=== PATIENT | female | born 1950 | race African-American/Black ===

== ENCOUNTER 2016-09-30 13:49 | Emergency (ER) | payer MEDICAID, MEDICARE ==
--- NOTE | 2016-09-30 14:28 | ER Document Report ---
ED Medical Screen (RME) - General Chief Complaint: Flank Pain Stated Complaint: FLANK PAIN Time Seen by Provider: 09/30/16 14:20 Notes: This 66-year-old female patient moved back to this area a few days ago. She had been living in [place] for the past year. She reports sudden onset about 4 hours ago while sitting on the bed of severe left flank pain. She also complains of pain in her joints in her arms and bursitis which is a chronic problem. Brief exam shows palpation tenderness to the left lumbar muscles, flank muscles , and lateral ribs abdomen and over the iliac crest. She did not take her blood pressure medication this morning. I have greeted and performed a rapid initial assessment of this patient. A comprehensive ED assessment and evaluation of the patient, analysis of test results and completion of the medical decision making process will be conducted by additional ED providers. TRAVEL OUTSIDE OF THE [place] IN LAST 30 DAYS: No - Related Data Allergies/Adverse Reactions: hydrocodone [Hydrocodone] Allergy (Severe, Verified 09/30/16 14:21) Hives naproxen sodium [From Aleve] Allergy (Severe, Verified 09/30/16 14:21) tremors pregabalin [From Lyrica] Allergy (Severe, Verified 09/30/16 14:21) Hallucinations strawberry [[place]] Allergy (Severe, Verified 09/30/16 14:21) Hives Past Medical History - Social History Chew tobacco use (# tins/day): No Frequency of alcohol use: None Drug Abuse: None - Past Medical History Cardiac Medical History: Reports: Hx Hypertension Denies: Hx Coronary Artery Disease, Hx Heart Attack Pulmonary Medical History: Reports: Hx Asthma - as child-not currently Denies: Hx Bronchitis, Hx COPD, Hx Pneumonia Neurological Medical History: Denies: Hx Cerebrovascular Accident, Hx Seizures Renal/ Medical History: Denies: Hx Peritoneal Dialysis GI Medical History: Reports: Hx Gastroesophageal Reflux Disease, Hx Hiatal Hernia Musculoskeltal Medical History: Reports Hx Arthritis - fibromyalgia, Reports Hx Fibromyalgia Past Surgical History: Reports: Hx Hysterectomy, Hx Tubal Ligation - Immunizations Hx Diphtheria, Pertussis, Tetanus Vaccination: Yes Physical Exam - Vital signs Vitals: Temp Pulse Resp BP Pulse Ox 98.8 F 75 18 177/102 H 97 09/30/16 14:02 09/30/16 14:02 09/30/16 14:02 09/30/16 14:02 09/30/16 14:02 Course - Vital Signs Vital signs: Temp Pulse Resp BP Pulse Ox 98.8 F 75 18 177/102 H 97 09/30/16 14:02 09/30/16 14:02 09/30/16 14:02 09/30/16 14:02 09/30/16 14:02
[2016-09-30 16:17] LABS: ABSOLUTE BASOPHILS # (AUTO) 0.1 10^3/uL (0.0-0.2); ABSOLUTE EOSINOPHILS # (AUTO) 0.2 10^3/uL (0.0-0.6); ABSOLUTE LYMPHOCYTES (AUTO) 2.6 10^3/uL (0.5-4.7); ABSOLUTE MONOCYTES (AUTO) 0.3 10^3/uL (0.1-1.4); EOSINOPHILS % (AUTO) 2.7 % (0-6); HEMOGLOBIN 14.2 g/dL (12.0-15.5); HGB HCT DIFFERENCE -0.4; LYMPHOCYTES % (AUTO) 42.2 % (13-45); MEAN CORPUSCULAR HEMOGLOBIN 29.7 pg (27.0-33.4); MEAN CORPUSCULAR VOLUME 90 fl (80-97); MONOCYTES % (AUTO) 5.6 % (3-13); RED BLOOD COUNT 4.79 10^6/uL (3.72-5.28); RED CELL DISTRIBUTION WIDTH 14.1 % (11.5-14.0); SEGMENTED NEUTROPHILS % (AUTO) 48.5 % (42-78); WHITE BLOOD COUNT 6.2 10^3/uL (4.0-10.5)
[2016-09-30 16:26] LABS: APPEARANCE,URINE CLEAR; BILIRUBIN,URINE NEGATIVE (NEGATIVE); GLUCOSE, URINE NEGATIVE (NEGATIVE); KETONES,URINE NEGATIVE (NEGATIVE); LEUKOCYTE ESTERASE,URINE NEGATIVE (NEGATIVE); NITRITE,URINE NEGATIVE (NEGATIVE); PROTEIN,URINE NEGATIVE (NEGATIVE); URINE SPECIFIC GRAVITY 1.009; UROBILINOGEN,URINE NEGATIVE mg/dL (<2.0)
[2016-09-30 16:39] LABS: ALANINE AMINOTRANSFERASE 31 U/L (9-52); ALBUMIN 4.3 g/dL (3.5-5.0); ALKALINE PHOSPHATASE 167 U/L (38-126); ANION GAP 13 (5-19); ASPARTATE AMINO TRANSFERASE 18 U/L (14-36); BILIRUBIN,DIRECT 0.4 mg/dL (0.0-0.4); BILIRUBIN,TOTAL 0.5 mg/dL (0.2-1.3); BLOOD UREA NITROGEN 16 mg/dL (7-20); CARBON DIOXIDE 23 mmol/L (22-30); CHLORIDE 102 mmol/L (98-107); CREATINE KINASE 65 U/L (30-135); CREATININE RESULT 0.64 mg/dL (0.52-1.25); GLUCOSE 102 mg/dL (75-110); POTASSIUM 4.3 mmol/L (3.6-5.0)
[2016-09-30] MEDS ORDERED: KETOROLAC TROMETHAMINE 60 MG/2 ML SDV IM ONE (16:55)
--- NOTE | 2016-09-30 16:58 | ER Document Report ---
ED General - General Chief Complaint: Flank Pain Stated Complaint: FLANK PAIN Time Seen by Provider: 09/30/16 14:20 Notes: 66-year-old female with history of a and chronic pain recently moved back to the area from [place] who presents with left back pain worse with movement. Constant. Of note, she seems to be mildly intoxicated on my interview. She denies urinary symptoms or nausea or vomiting. Previously on Lyrica. TRAVEL OUTSIDE OF THE [place] IN LAST 30 DAYS: No - Related Data Allergies/Adverse Reactions: hydrocodone [Hydrocodone] Allergy (Severe, Verified 09/30/16 14:21) Hives naproxen sodium [From Aleve] Allergy (Severe, Verified 09/30/16 14:21) tremors pregabalin [From Lyrica] Allergy (Severe, Verified 09/30/16 14:21) Hallucinations strawberry [[place]] Allergy (Severe, Verified 09/30/16 14:21) Hives Past Medical History - General Information source: Patient - Social History Smoking Status: Never Smoker Chew tobacco use (# tins/day): No Frequency of alcohol use: None Drug Abuse: None Family History: Reviewed & Not Pertinent - Past Medical History Cardiac Medical History: Reports: Hx Hypertension Denies: Hx Coronary Artery Disease, Hx Heart Attack Pulmonary Medical History: Reports: Hx Asthma - as child-not currently Denies: Hx Bronchitis, Hx COPD, Hx Pneumonia Neurological Medical History: Denies: Hx Cerebrovascular Accident, Hx Seizures Renal/ Medical History: Denies: Hx Peritoneal Dialysis GI Medical History: Reports: Hx Gastroesophageal Reflux Disease, Hx Hiatal Hernia Musculoskeltal Medical History: Reports Hx Arthritis - fibromyalgia, Reports Hx Fibromyalgia Past Surgical History: Reports: Hx Hysterectomy, Hx Tubal Ligation - Immunizations Hx Diphtheria, Pertussis, Tetanus Vaccination: Yes Hx Pneumococcal Vaccination: 11/26/12 Review of Systems - Review of Systems Notes: REVIEW OF SYSTEMS GEN: Denies fever, chills, weight loss ENT: Denies sore throat, nasal discharge, ear pain EYES: Denies blurry vision, eye pain, discharge CV: Denies chest pain, palpitations, edema RESP: Denies cough, shortness of breath, wheezing GI: Denies abdominal pain, nausea, vomiting, diarrhea MSK: Left-sided back pain, chronic joint pain SKIN: Denies rash, skin lesions LYMPH: Denies swollen glands/lymph nodes NEURO: Denies headache, focal weakness or numbness, dizziness PSYCH: Denies depression, suicidal or homicidal ideation PHYSICAL EXAMINATION General: No acute distress, well-nourished Head: Atraumatic, normocephalic ENT: Mouth normal, oropharynx moist, no exudates or tonsillar enlargement Eyes: Conjunctiva normal, pupils equal, lids normal Neck: No JVD, supple, no guarding CVS: Normal rate, regular rhythm, no murmurs Resp: No resp distress, equal and normal breath sounds bilaterally GI: Nondistended, soft, no tenderness to palpation, no rebound or guarding Ext: No deformities, no edema, normal range of motion in upper and lower ext Back: No CVA or midline TTP. Patient is holding her left paraspinous area which is mildly tender without spasm. Skin: No rash, warm Lymphatic: No lymphadeopathy noted Neuro: Awake, alert. Face symmetric. GCS 15. Physical Exam - Vital signs Vitals: Temp Pulse Resp BP Pulse Ox 98.8 F 75 18 177/102 H 97 09/30/16 14:02 09/30/16 14:02 09/30/16 14:02 09/30/16 14:02 09/30/16 14:02 Course - Re-evaluation Re-evalutation: 09/30/16 16:57 66-year-old lady with history of chronic pain presents with acute back pain. She has multiple allergies, moved out of the area I cannot check her records for narcotics and I suspect she is mildly intoxicated. Likely she had labs and a urinalysis ordered from triage and they are all normal. She is no midline tenderness to suggest severe because of bony back pain she has no neurologic symptoms to suggest cauda equina. I let her know that in order to get controlled substances she will need to establish care with the primary doctor. She will be given Toradol in the emergency department and prescribed naproxen. I have discussed with the patient there likely diagnosis, aftercare plan, follow -up plans and my usual and customary return precautions. They verbalized understanding of this. 09/30/16 16:57 - Vital Signs Vital signs: Temp Pulse Resp BP Pulse Ox 98.8 F 75 18 177/102 H 97 09/30/16 14:02 09/30/16 14:02 09/30/16 14:02 09/30/16 14:02 09/30/16 14:02 - Laboratory Result Diagrams: 09/30/16 15:55 09/30/16 15:55 Laboratory results interpreted by me: 09/30/16 09/30/16 15:55 15:55 RDW 14.1 H Alkaline Phosphatase 167 H Discharge - Discharge Clinical Impression: Acute back pain Qualifiers: Back pain location: low back pain Back pain laterality: right Sciatica presence : without sciatica Qualified Code(s): M54.5 - Low back pain Condition: Good Disposition: HOME, SELF-CARE Instructions: Low Back Pain ([facility]) Additional Instructions: Please establish care with a primary care doctor in order to manage her fibromyalgia, joint pain in this back pain if it is not improved.
[2016-09-30 17:22] VITALS: BP 151/92
== END 2016-09-30 17:22 | disposition home or self-care (01) ==
LOC: ER 13:49
DX: M54.5 Low back pain (principal); R10.9 Unspecified abdominal pain; M54.9 Dorsalgia, unspecified; G89.29 Other chronic pain
CPT/HCPCS: 99283; 96372; 36415; 82550; 85025; 80053; 81001; J1885

== ENCOUNTER → 2016-10-17 | Outpatient (CLI) | payer MEDICARE, MEDICAID ==
--- NOTE | 2016-10-17 11:27 | RADIOLOGY REPORT (SQ) ---
EXAM DESCRIPTION: L SPINE WHOLE COMPLETED DATE/TIME: 10/17/2016 11:06 am REASON FOR STUDY: LOW BACK PAIN (M54.5) M54.5 LOW BACK PAIN COMPARISON: None. NUMBER OF VIEWS: Five views including obliques. TECHNIQUE: AP, lateral, oblique, and sacral radiographic images acquired of the lumbar spine. LIMITATIONS: None. FINDINGS: MINERALIZATION: Osteopenia. SEGMENTATION: Normal. No transitional anatomy. ALIGNMENT: Normal. VERTEBRAE: Maintained height. No fracture or worrisome bone lesion. DISCS: Preserved height. No significant osteophytes or end plate irregularity. POSTERIOR ELEMENTS: Hypertrophic facet changes are present throughout the lumbar spine. HARDWARE: None in the spine. PARASPINAL SOFT TISSUES: Normal. PELVIS: Intact as visualized. No fractures or worrisome bone lesions. SI joints intact. OTHER: No other significant finding. IMPRESSION: Multilevel facet arthropathy. TECHNICAL DOCUMENTATION: JOB ID: [id number] [email or web address]- All Rights Reserved
== END ==
LOC: RAD 10:13
PROVIDERS: ATTEND Family Medicine
DX: M54.5 Low back pain (principal)
CPT/HCPCS: 72110

== ENCOUNTER 2016-11-15 18:20 | Emergency (ER) | payer MEDICARE, MEDICAID ==
[2016-11-15] MEDS ORDERED: ASPIRIN 81 MG TABLET, CHEWABLE PO ONE (20:39)
--- NOTE | 2016-11-15 21:48 | RADIOLOGY REPORT (SQ) ---
EXAM DESCRIPTION: CHEST SINGLE VIEW COMPLETED DATE/TIME: 11/15/2016 9:32 pm REASON FOR STUDY: cp COMPARISON: 08/31/2015 EXAM PARAMETERS: NUMBER OF VIEWS: One view. TECHNIQUE: Single frontal radiographic view of the chest acquired. RADIATION DOSE: NA LIMITATIONS: None. FINDINGS: LUNGS AND PLEURA: No opacities, masses or pneumothorax. No pleural effusion. MEDIASTINUM AND HILAR STRUCTURES: No masses. Contour normal. HEART AND VASCULAR STRUCTURES: Heart normal in size. Normal vasculature. BONES: No acute findings. HARDWARE: None in the chest. OTHER: No other significant finding. IMPRESSION: NO ACUTE RADIOGRAPHIC FINDING IN THE CHEST. TECHNICAL DOCUMENTATION: JOB ID: [id number]
[2016-11-15] MEDS ORDERED: LORAZEPAM 1 MG TABLET PO ONE (21:57)
[2016-11-15] MEDS ORDERED: FAMOTIDINE 20 MG TABLET PO ONE (22:00)
--- NOTE | 2016-11-15 22:02 | ER Document Report ---
ED General - General Chief Complaint: Chest Pain Stated Complaint: CHEST PAIN Time Seen by Provider: 11/15/16 21:45 Notes: Patient is a 66-year-old female with a past medical history of hypertension and fibromyalgia who presents complaining of an episode of left-sided chest discomfort as well as epigastric abdominal discomfort starting yesterday and has been continuous since that time. Describes it as a dull, aching pressure over the left side of the chest and epigastrium but is not present at this time. States that she has not tried anything to improve her symptoms at home and has not noted anything worsens her symptoms. She denies any history of coronary artery disease or prior myocardial infarction. She denies any associated pleuritic pain, shortness of breath, diaphoresis or vomiting. She does note that she was nauseated however with the pain. She has not seen a primary care doctor regarding today's concerns. She has had similar symptoms in the past. TRAVEL OUTSIDE OF THE [place] IN LAST 30 DAYS: No - Related Data Allergies/Adverse Reactions: hydrocodone [Hydrocodone] Allergy (Severe, Verified 11/15/16 18:41) Hives naproxen sodium [From Aleve] Allergy (Severe, Verified 11/15/16 18:41) tremors pregabalin [From Lyrica] Allergy (Severe, Verified 11/15/16 18:41) Hallucinations strawberry [[place]] Allergy (Severe, Verified 11/15/16 18:41) Hives Past Medical History - General Information source: Patient - Social History Smoking Status: Never Smoker Frequency of alcohol use: None Drug Abuse: None Lives with: Alone Family History: Reviewed & Not Pertinent - Past Medical History Cardiac Medical History: Reports: Hx Hypertension Denies: Hx Coronary Artery Disease, Hx Heart Attack Pulmonary Medical History: Reports: Hx Asthma - as child-not currently Denies: Hx Bronchitis, Hx COPD, Hx Pneumonia Neurological Medical History: Denies: Hx Cerebrovascular Accident, Hx Seizures Renal/ Medical History: Denies: Hx Peritoneal Dialysis GI Medical History: Reports: Hx Gastroesophageal Reflux Disease, Hx Hiatal Hernia Musculoskeltal Medical History: Reports Hx Arthritis - fibromyalgia, Reports Hx Fibromyalgia Past Surgical History: Reports: Hx Hysterectomy, Hx Tubal Ligation - Immunizations Hx Diphtheria, Pertussis, Tetanus Vaccination: Yes Hx Pneumococcal Vaccination: 11/26/12 Review of Systems - Review of Systems Notes: Constitutional: Negative for fever. HENT: Negative for sore throat. Eyes: Negative for visual changes. Cardiovascular: Positive for chest pain. Respiratory: Negative for shortness of breath. Gastrointestinal: Negative for abdominal pain, vomiting or diarrhea. Genitourinary: Negative for dysuria. Musculoskeletal: Negative for back pain. Skin: Negative for rash. Neurological: Negative for headaches, weakness or numbness. 10 point ROS negative except as marked above and in HPI. Physical Exam - Vital signs Vitals: Temp Pulse Resp BP Pulse Ox 99.1 F 73 20 195/97 H 98 11/15/16 18:37 11/15/16 18:37 11/15/16 18:37 11/15/16 18:37 11/15/16 18:37 Interpretation: Hypertensive Notes: PHYSICAL EXAMINATION: GENERAL: Well-appearing, well-nourished and in no acute distress. HEAD: Atraumatic, normocephalic. EYES: Pupils equal round and reactive to light, extraocular movements intact, sclera anicteric, conjunctiva are normal. ENT: nares patent, oropharynx clear without exudates. Moist mucous membranes. NECK: Normal range of motion, supple without lymphadenopathy LUNGS: Breath sounds clear to auscultation bilaterally and equal. No wheezes rales or rhonchi. HEART: Regular rate and rhythm without murmurs ABDOMEN: Soft, nontender, normoactive bowel sounds. No guarding, no rebound. No masses appreciated. EXTREMITIES: Normal range of motion, no pitting or edema. No cyanosis. NEUROLOGICAL: No focal neurological deficits. Moves all extremities spontaneously and on command. PSYCH: Normal mood, normal affect. SKIN: Warm, Dry, normal turgor, no rashes or lesions noted. Course - Re-evaluation Re-evalutation: 11/15/16 22:02 Presentation of chest pain in an otherwise well appearing patient. Low clinical suspicion for ACS given clinical history, exam, EKG without ST elevations or depressions, and negative initial troponin. EKG does show T-wave inversions in the lateral leads and review of prior EKGs shows that this is unchanged. PE also seems unlikely given clinical history, absence of tachycardia or dyspnea. Wells score is 0. CXR without evidence of pneumothorax or pneumonia. No widened mediastinum. Aortic dissection also seems unlikely given history, symmetric pulses, CXR, and vitals. 11/16/16 02:12 Repeat troponin remains normal. Patient continues to be without any symptoms or concerns at this time. She is requesting to go home. I do believe this is reasonable as she does have close outpatient follow-up. At this time will discharge with return precautions and follow-up recommendations. Verbal discharge instructions given a the bedside and opportunity for questions given. Medication warnings reviewed. Patient is in agreement with this plan and has verbalized understanding of return precautions and the need for primary care follow-up in the next 24-72 hours. - Vital Signs Vital signs: Temp Pulse Resp BP Pulse Ox 99.1 F 73 14 195/97 H 99 11/15/16 18:37 11/15/16 18:37 11/15/16 23:00 11/15/16 18:37 11/15/16 23:00 - Laboratory Result Diagrams: 11/15/16 22:42 11/15/16 22:42 Laboratory results interpreted by me: 11/15/16 11/15/16 22:42 22:42 Seg Neutrophils % 39.5 L Lymphocytes % 50.0 H Alkaline Phosphatase 155 H - Diagnostic Test Radiology reviewed: Image reviewed, Reports reviewed Radiology results interpreted by me: 11/15/16 22:01 Chest x-ray: No acute infiltrate or pneumothorax - EKG Interpretation by Me Additional EKG results interpreted by me: 11/15/16 22:06 Normal sinus rhythm. Rate 73. No ST elevations or depressions. T-wave inversions in lateral leads unchanged from prior EKG. QTC is 437. Discharge - Discharge Clinical Impression: Essential hypertension Chest pain Qualifiers: Chest pain type: unspecified Qualified Code(s): R07.9 - Chest pain, unspecified Condition: Good Disposition: HOME, SELF-CARE Additional Instructions: You were seen today for chest pain. The exact cause of your pain is unclear. However, based on your cardiac enzyme testing, chest x-ray, and EKG it does not appear that it is from an immediately life-threatening cause at this time. Although your testing here is normal is critical that you follow-up with your primary care physician for continued evaluation of this chest pain and possible stress testing. I recommended you see your physician within the next 24-48 hours to be evaluated for consideration of a stress test. Please return to emergency department immediately if you have worsening of your chest pain, shortness of breath, vomiting, become unable to exert yourself due to pain or difficulty breathing, you pass out, or have any pain that radiates into your arms, jaw, or back. Please also return if you have any additional symptoms that are concerning to you. Referrals: ALINA PHILLIPS MD [Primary Care Provider] - Follow up as needed
[2016-11-15 22:58] LABS: ABSOLUTE BASOPHILS # (AUTO) 0.1 10^3/uL (0.0-0.2); ABSOLUTE EOSINOPHILS # (AUTO) 0.2 10^3/uL (0.0-0.6); ABSOLUTE LYMPHOCYTES (AUTO) 3.2 10^3/uL (0.5-4.7); ABSOLUTE MONOCYTES (AUTO) 0.4 10^3/uL (0.1-1.4); ABSOLUTE NEUT (AUTO) 2.6 10^3/uL (1.7-8.2); EOSINOPHILS % (AUTO) 2.3 % (0-6); HEMATOCRIT 41.1 % (36.0-47.0); HEMOGLOBIN 13.9 g/dL (12.0-15.5); HGB HCT DIFFERENCE 0.6; MEAN CORPUSCULAR HEMOGLOBIN 30.3 pg (27.0-33.4); MEAN CORPUSCULAR HGB CONC 33.9 g/dL (32.0-36.0); MEAN CORPUSCULAR VOLUME 89 fl (80-97); MONOCYTES % (AUTO) 6.2 % (3-13); RED CELL DISTRIBUTION WIDTH 13.9 % (11.5-14.0); SEGMENTED NEUTROPHILS % (AUTO) 39.5 % (42-78); WHITE BLOOD COUNT 6.5 10^3/uL (4.0-10.5)
[2016-11-15 23:27] LABS: ALANINE AMINOTRANSFERASE 25 U/L (9-52); ALBUMIN 4.1 g/dL (3.5-5.0); ALKALINE PHOSPHATASE 155 U/L (38-126); ANION GAP 10 (5-19); ASPARTATE AMINO TRANSFERASE 28 U/L (14-36); BILIRUBIN,DIRECT 0.3 mg/dL (0.0-0.4); BILIRUBIN,TOTAL 0.3 mg/dL (0.2-1.3); BLOOD UREA NITROGEN 12 mg/dL (7-20); CALCIUM 9.5 mg/dL (8.4-10.2); CARBON DIOXIDE 23 mmol/L (22-30); CHLORIDE 105 mmol/L (98-107); CREATININE RESULT 0.54 mg/dL (0.52-1.25); GLUCOSE 107 mg/dL (75-110); SODIUM 138.3 mmol/L (137-145); TOTAL PROTEIN 7.7 g/dL (6.3-8.2)
[2016-11-16] MEDS ORDERED: LIDOCAINE 2% JELLY 5 ML TUBE TOP ONE (00:06)
--- NOTE | 2016-11-16 00:16 | EKG REPORT ---
SEVERITY:- ABNORMAL ECG - SINUS RHYTHM ABNORMAL T, CONSIDER ISCHEMIA, LATERAL LEADS : Confirmed by: Michael Bedolla 16-Nov-2016 00:15:58
[2016-11-16 03:16] VITALS: BP 162/94
== END 2016-11-16 03:13 | disposition home or self-care (01) ==
LOC: ER 18:20
DX: R07.89 Other chest pain (principal); I10 Essential (primary) hypertension; R11.0 Nausea; Z88.5 Allergy status to narcotic agent; Z91.018 Allergy to other foods; Z88.8 Allergy status to other drugs, medicaments and biological substances
CPT/HCPCS: 93005; 99285; 36415; 85025; 80053; 84484; 71010; 93010; A9270 ×3

== ENCOUNTER 2016-11-28 17:57 | Emergency (ER) | payer MEDICARE, MEDICAID ==
[2016-11-28] MEDS ORDERED: OXYCODONE-ACETAMINOPHEN 5-325 MG TABLET PO ONE (20:16)
--- NOTE | 2016-11-28 20:28 | ER Document Report ---
ED Extremity Problem, Lower - General Chief Complaint: Toe Injury Stated Complaint: TOE INJURY Time Seen by Provider: 11/28/16 19:40 Mode of Arrival: Ambulatory Information source: Patient Notes: 66-year-old female presents to ED for complaint of pain to her fourth toe on her right foot. She states she kicked a table about 130 this afternoon while going to answer the phone. Her sister was at [place] so she needed to wait for her to come home before she could come to the doctor. TRAVEL OUTSIDE OF THE [place] IN LAST 30 DAYS: No - HPI Patient complains to provider of: Injury, Pain, Swelling Location: 4th Toe Occurred: This afternoon Where: Home, Indoors Onset/Duration: Sudden, Persistent Quality of pain: Sharp, Throbbing Severity: Moderate Pain Level: 4 Context: Barefoot Recent injury: Yes Associated symptoms: Painful ambulation Exacerbated by: Hanging down, Movement, Walking Relieved by: Elevation, Ice, Rest - Related Data Allergies/Adverse Reactions: hydrocodone [Hydrocodone] Allergy (Severe, Verified 11/15/16 18:41) Hives naproxen sodium [From Aleve] Allergy (Severe, Verified 11/15/16 18:41) tremors pregabalin [From Lyrica] Allergy (Severe, Verified 11/15/16 18:41) Hallucinations strawberry [[place]] Allergy (Severe, Verified 11/15/16 18:41) Hives Past Medical History - Social History Smoking Status: Never Smoker Cigarette use (# per day): No Chew tobacco use (# tins/day): No Smoking Education Provided: No Frequency of alcohol use: None Drug Abuse: None Lives with: Family Family History: Reviewed & Not Pertinent Patient has suicidal ideation: No - Past Medical History Cardiac Medical History: Reports: Hx Hypertension, Other - irregular heartbeat Pulmonary Medical History: Reports: Hx Asthma - as child-not currently, Hx Bronchitis, Hx Pneumonia EENT Medical History: Reports: None Neurological Medical History: Reports: Hx Migraine Endocrine Medical History: Reports: Hx Diabetes Mellitus Type 2 - diet control Renal/ Medical History: Reports: None Malignancy Medical History: Reports: None GI Medical History: Reports: Hx Gastroesophageal Reflux Disease, Hx Hiatal Hernia, Hx Colonoscopy, Hx Endoscopy Musculoskeltal Medical History: Reports Hx Arthritis - fibromyalgia, Reports Hx Fibromyalgia Skin Medical History: Reports None Psychiatric Medical History: Reports: None Traumatic Medical History: Reports: Hx Fractures - Arm leg ankle Infectious Medical History: Reports: None Past Surgical History: Reports: Hx Hysterectomy, Hx Oral Surgery - Dental surgery, Hx Tubal Ligation - Immunizations Hx Diphtheria, Pertussis, Tetanus Vaccination: Yes Hx Pneumococcal Vaccination: 11/26/12 Review of Systems - Review of Systems Constitutional: No symptoms reported EENT: No symptoms reported Cardiovascular: No symptoms reported Respiratory: No symptoms reported Gastrointestinal: No symptoms reported Genitourinary: No symptoms reported Female Genitourinary: No symptoms reported Musculoskeletal: Other - painful 4th toe with bruising and swelling Skin: No symptoms reported Hematologic/Lymphatic: No symptoms reported Neurological/Psychological: No symptoms reported -: Yes All other systems reviewed and negative Physical Exam - Vital signs Vitals: Pulse Resp BP Pulse Ox 93 18 157/103 H 94 11/28/16 18:15 11/28/16 18:15 11/28/16 18:15 11/28/16 18:15 Interpretation: Normal - General General appearance: Appears well, Alert - HEENT Head: Normocephalic, Atraumatic Eyes: Normal Pupils: PERRL - Respiratory Respiratory status: No respiratory distress Chest status: Nontender Breath sounds: Normal Chest palpation: Normal - Cardiovascular Rhythm: Regular Heart sounds: Normal auscultation Murmur: No - Abdominal Inspection: Normal Distension: No distension Bowel sounds: Normal Tenderness: Nontender Organomegaly: No organomegaly - Back Back: Normal, Nontender - Extremities General upper extremity: Normal inspection, Nontender, Normal color, Normal ROM , Normal temperature General lower extremity: Normal ROM, Normal temperature, Normal weight bearing. No: Nicole's sign Foot: Tender, Ecchymosis, Edema, No evidence of FB, Unable to bear weight. No: Abrasion, Deformity, Instability, Laceration, Metatarsal compress. pain, Navicular tenderness, Puncture wound, Tender 5th metatarsal - Neurological Neuro grossly intact: Yes Cognition: Normal Orientation: AAOx4 [place] Coma Scale Eye Opening: Spontaneous [place] Coma Scale Verbal: Oriented Henry Coma Scale Motor: Obeys Commands [place] Coma Scale Total: 15 Speech: Normal Motor strength normal: LUE, RUE, LLE, RLE Sensory: Normal - Psychological Associated symptoms: Normal affect, Normal mood - Skin Skin Temperature: Warm Skin Moisture: Dry Skin Color: Normal, Ecchymosis - right foot Course - Re-evaluation Re-evalutation: 11/28/16 21:01 X-ray showed to patient and written report given the patient and CD given the patient to take to orthopedics as she states she is going to [facility]. Norbert tape applied to the third and fourth toes within the patient was placed in a postop shoe and instructed on use of crutches. Patient instructed to elevate and ice the toe. Patient instructed to follow-up with her primary doctor tomorrow for her elevated blood pressure. Patient is discharged home with prescription for Percocet. - Vital Signs Vital signs: Temp Pulse Resp BP Pulse Ox 98.6 F 86 20 192/110 H 97 11/28/16 20:56 11/28/16 20:56 11/28/16 20:56 11/28/16 20:56 11/28/16 20:56 - Diagnostic Test Radiology reviewed: Image reviewed, Reports reviewed Procedures - Immobilization Right Toe 4th digit Time completed: 21:01 Pre-Proc Neuro Vasc Exam: Normal Immobilizer type: Crutches, Post-op shoe, Other - norbert tape 4th toe Performed by: Provider assisted, PCT Post-Proc Neuro Vasc Exam: Normal Alignment checked and good: Yes Discharge - Discharge Clinical Impression: Closed fracture of fourth toe of right foot Qualifiers: Encounter type: initial encounter Qualified Code(s): S92.501A - Displaced unspecified fracture of right lesser toe(s), initial encounter for closed fracture Condition: Stable Disposition: HOME, SELF-CARE Additional Instructions: Fractured Toe You have fractured your toe. Although this fracture doesn't need a cast or splint, emergency evaluation was needed to assess the straightness of the bones and joints. Reduction ("setting") is necessary for toe fractures which are crooked or twisted. A toe fracture will heal in about three weeks. Usually, the fractured toe is taped to the next toe. The second toe acts as a moving splint to protect the broken one. Ice and elevation help during the first 48 hours. You may need crutches at first if walking is painful. When you begin walking, be careful NOT to do things that hurt. If weight bearing is not comfortable within a few days, you may require a special shoe, walking boot, or cast. Call the doctor or return at once if severe swelling, severe pain, or numbness develop in the toe, or if you suspect you may have re-injured it. Norbert Taping Your toes have been taped together -- called "norbert taping." The good toe can act as a moving splint to protect the injured toe. You will probably need to keep the tape in place (replacing it when needed) for about three weeks. A firm shoe over the injured toes is usually a good idea. As a general rule, you shouldn't do anything which causes pain to your taped toes. Taping isn't absolute protection, so match your activity to your degree of healing. If you ever suspect that you have re-injured the toe, return for re-examination. Keep the tape dry. Constant wetness harms the skin. Some cotton between the toes may help if perspiration is a problem. Replace the tape as needed when it becomes loose, weak, or dirty. Replace the tape daily if you are sweating. If the toes swell, discolor, or become numb, loosen the tape. Return here if there are problems. Post-Op Shoe You are to use a "post-op shoe," sometimes also called a "bunnion shoe." This shoe helps protect minor fractures, sprains, and other injuries of the toes or foot. You may remove the shoe for bathing. Walk carefully. If you're feeling pain, put less weight on the foot, take smaller steps, or use a cane. If you have a new injury, you may need to use crutches for the first couple of days. If pain still prevents walking after a few days, contact the doctor. If there's unexpected pain in your foot, if blisters or sore spots develop , or if the shoe is physically coming apart, return at once. Remember that you' re welcome to come in at any time to have the fit of the shoe checked and adjusted. USE OF CRUTCHES: The doctor has recommended that you not bear weight at this time. You will need to use crutches. Adjust the crutches so the tops come to about two inches under the armpit while you are standing upright. Use your hands -- not your armpits -- to support your weight. To get into a chair, support yourself with one crutch on the injured side. Hold the chair with the other hand, then lower yourself while putting all your weight on the good leg. Going up stairs is `good leg up, step up, then bring up crutches and bad leg.' Down stairs is `bad leg and crutches down, then bring good leg down.' If you develop numbness or swelling in an arm or hand, you are using the crutches incorrectly. Return if you are having any problems with the crutches. ICE & ELEVATION: Apply ice packs frequently against the painful area. Many different schedules are recommended, such as "20 minutes on, 20 minutes off" or "one hour ice, two hours rest." If you need to work, you may need to go longer between ice treatments. You should plan to have the area ice packed AT LEAST one- fourth of the time. The ice should be applied over the wrap, tape, or splint, or over a layer of cloth -- not directly against the skin. Some ice bags have a built-in cloth and can be put directly on the skin. Your injured part should be elevated as much as possible over the next 48 hours. Try to keep the injury above the level of the heart. Avoid use of the injured area. Elevation and rest will decrease the swelling. USE OF [id number] IBUPROFEN: Ibuprofen (Advil, Nuprin, Medipren, Motrin IB) is a medication for fever and pain control. In addition, it has anti- inflammatory effects which may be beneficial, especially in the treatment of injuries. It's best to take ibuprofen with food. Persons with ulcer disease or allergy to aspirin should notify their physician of this before taking ibuprofen. Ibuprofen can be given every four to six hours, for a total of four doses daily. Age Pain or fever dose Antiinflammatory dose 6-8 yr 200 mg (1 tab) 200 mg (1 tab) 9-11 yr 200 mg (1 tab) 200-400 mg (1-2 tab) 11-14 yr 200-400 mg (1-2 tab) 400 mg (2 tab) 15-adult 400 mg (2 tab) 600 mg (3 tab) ORAL NARCOTIC MEDICATION: You have been given a prescription for pain control. This medication is a narcotic. It's best taken with food, as nausea can result if taken on an empty stomach. Don't operate machinery or drive within six hours of taking this medication. Do not combine this medicine with alcohol, or with any medication which can cause sedation (such as cold tablets or sleeping pills) unless you get permission from the physician. Narcotics tend to cause constipation. If possible, drink plenty of fluids and eat a diet high in fiber and fruits. Please be aware that prescription narcotics also have the potential for abuse. People become addicted to these medications because of the general sense of wellbeing that they induce. This feeling along with a significant reduction in tension, anxiety, and aggression provides a stimulating seductive quality to these drugs. Once your pain is under control, we encourage you to discard your unused narcotics. FOLLOW-UP CARE: If you have been referred to a physician for follow-up care, call the physician s office for an appointment as you were instructed or within the next two days. If you experience worsening or a significant change in your symptoms, notify the physician immediately or return to the Emergency Department at any time for re-evaluation. Stated you will go to [facility] tomorrow. I have made a CD of the x-ray for her to take to or to [place]. Prescriptions: Oxycodone HCl/Acetaminophen [Percocet 5-325 mg Tablet] 1 tab PO Q6HP PRN #10 tablet PRN Reason: Forms: Elevated Blood Pressure Referrals: SHAYE GUPTA MD [Primary Care Provider] - Follow up as needed
--- NOTE | 2016-11-28 20:40 | RADIOLOGY REPORT (SQ) ---
EXAM DESCRIPTION: FOOT RIGHT COMPLETE COMPLETED DATE/TIME: 11/28/2016 8:07 pm REASON FOR STUDY: pain 4th toe COMPARISON: None. NUMBER OF VIEWS: Three views. TECHNIQUE: AP, lateral and oblique radiographic images acquired of the right foot. LIMITATIONS: None. FINDINGS: MINERALIZATION: Osteopenia. BONES: Nondisplaced fracture of the proximal phalanx of the 4th toe. No dislocation. No worrisome b one lesions. JOINTS: No effusions. SOFT TISSUES: Mild soft tissue swelling. No foreign body. OTHER: No other significant finding. IMPRESSION: Nondisplaced fracture of the proximal phalanx of the 4th toe. TECHNICAL DOCUMENTATION: JOB ID: [id number] [employer]- All Rights Reserved
[2016-11-28 20:57] VITALS: BP 192/110
== END 2016-11-28 21:02 | disposition home or self-care (01) ==
LOC: ER 17:57
DX: S92.511A Displaced fracture of proximal phalanx of right lesser toe(s), initial encounter for closed fracture (principal); W22.03XA Walked into furniture, initial encounter; Y93.89 Activity, other specified; Y92.009 Unspecified place in unspecified non-institutional (private) residence as the place of occurrence of the external cause; E11.9 Type 2 diabetes mellitus without complications; I10 Essential (primary) hypertension; Z88.5 Allergy status to narcotic agent; Z88.6 Allergy status to analgesic agent; Z88.8 Allergy status to other drugs, medicaments and biological substances; Z91.018 Allergy to other foods
CPT/HCPCS: 99283; 73630; A9270

== ENCOUNTER 2016-12-27 11:11 | Emergency (ER) | payer MEDICARE, MEDICAID ==
[2016-12-27] MEDS ORDERED: CLONIDINE HCL 0.2 MG TABLET PO ONE (11:30)
--- NOTE | 2016-12-27 11:33 | ER Document Report ---
ED Medical Screen (RME) - General Chief Complaint: Blood Pressure Problem Stated Complaint: BLOOD PRESSURE ISSUES Time Seen by Provider: 12/27/16 11:30 Mode of Arrival: Ambulatory Information source: Patient TRAVEL OUTSIDE OF THE [place] IN LAST 30 DAYS: No - HPI Patient complains to provider of: elevated BP Onset: This morning - pt wsa in PCP office (pain mgt) and was sent here for elevated BP-- states she did not take her BP meds today - Related Data Allergies/Adverse Reactions: hydrocodone [Hydrocodone] Allergy (Severe, Verified 12/27/16 11:16) Hives naproxen sodium [From Aleve] Allergy (Severe, Verified 12/27/16 11:16) tremors pregabalin [From Lyrica] Allergy (Severe, Verified 12/27/16 11:16) Hallucinations strawberry [[place]] Allergy (Severe, Verified 12/27/16 11:16) Hives Home Medications: Current Home Medications Oxycodone HCl/Acetaminophen [Percocet 5-325 mg Tablet] 1 - 2 tab PO DAILY [History] Past Medical History - Past Medical History Cardiac Medical History: Reports: Hx Hypertension Denies: Hx Coronary Artery Disease, Hx Heart Attack Pulmonary Medical History: Reports: Hx Asthma - as child-not currently, Hx Bronchitis, Hx Pneumonia Denies: Hx COPD Neurological Medical History: Reports: Hx Migraine. Denies: Hx Cerebrovascular Accident, Hx Seizures Endocrine Medical History: Reports: Hx Diabetes Mellitus Type 2 - diet control Renal/ Medical History: Denies: Hx Peritoneal Dialysis GI Medical History: Reports: Hx Gastroesophageal Reflux Disease, Hx Hiatal Hernia, Hx Colonoscopy, Hx Endoscopy Musculoskeltal Medical History: Reports Hx Arthritis - fibromyalgia, Reports Hx Fibromyalgia Traumatic Medical History: Reports: Hx Fractures - Arm leg ankle Past Surgical History: Reports: Hx Hysterectomy, Hx Oral Surgery - Dental surgery, Hx Tubal Ligation - Immunizations Hx Diphtheria, Pertussis, Tetanus Vaccination: Yes Physical Exam - Vital signs Vitals: Temp Pulse Resp BP Pulse Ox 97.8 F 79 20 182/120 H 97 12/27/16 11:19 12/27/16 11:19 12/27/16 11:19 12/27/16 11:19 12/27/16 11:19 Course - Vital Signs Vital signs: Temp Pulse Resp BP Pulse Ox 97.8 F 79 20 182/120 H 97 12/27/16 11:19 12/27/16 11:19 12/27/16 11:19 12/27/16 11:19 12/27/16 11:19
[2016-12-27 11:58] LABS: ABSOLUTE BASOPHILS # (AUTO) 0.1 10^3/uL (0.0-0.2); ABSOLUTE EOSINOPHILS # (AUTO) 0.1 10^3/uL (0.0-0.6); ABSOLUTE LYMPHOCYTES (AUTO) 2.2 10^3/uL (0.5-4.7); ABSOLUTE MONOCYTES (AUTO) 0.4 10^3/uL (0.1-1.4); ABSOLUTE NEUT (AUTO) 3.1 10^3/uL (1.7-8.2); BASOPHILS % (AUTO) 1.5 % (0-2); EOSINOPHILS % (AUTO) 1.7 % (0-6); HEMATOCRIT 40.5 % (36.0-47.0); HEMOGLOBIN 13.9 g/dL (12.0-15.5); HGB HCT DIFFERENCE 1.2; LYMPHOCYTES % (AUTO) 37.7 % (13-45); MEAN CORPUSCULAR HEMOGLOBIN 30.3 pg (27.0-33.4); MEAN CORPUSCULAR HGB CONC 34.4 g/dL (32.0-36.0); MEAN CORPUSCULAR VOLUME 88 fl (80-97); MONOCYTES % (AUTO) 6.2 % (3-13); RED BLOOD COUNT 4.59 10^6/uL (3.72-5.28); RED CELL DISTRIBUTION WIDTH 13.9 % (11.5-14.0); SEGMENTED NEUTROPHILS % (AUTO) 52.9 % (42-78); WHITE BLOOD COUNT 5.9 10^3/uL (4.0-10.5)
[2016-12-27 12:28] LABS: ALANINE AMINOTRANSFERASE 41 U/L (9-52); ALBUMIN 4.1 g/dL (3.5-5.0); ALKALINE PHOSPHATASE 142 U/L (38-126); ANION GAP 13 (5-19); ASPARTATE AMINO TRANSFERASE 25 U/L (14-36); BILIRUBIN,DIRECT 0.2 mg/dL (0.0-0.4); BILIRUBIN,TOTAL 0.4 mg/dL (0.2-1.3); BLOOD UREA NITROGEN 13 mg/dL (7-20); CALCIUM 9.7 mg/dL (8.4-10.2); CARBON DIOXIDE 22 mmol/L (22-30); CHLORIDE 106 mmol/L (98-107); CREATININE RESULT 0.63 mg/dL (0.52-1.25); GLUCOSE 137 mg/dL (75-110); SODIUM 140.7 mmol/L (137-145); TOTAL PROTEIN 7.3 g/dL (6.3-8.2)
--- NOTE | 2016-12-27 12:47 | ER Document Report ---
ED General - General Chief Complaint: Blood Pressure Problem Stated Complaint: BLOOD PRESSURE ISSUES Time Seen by Provider: 12/27/16 11:30 Mode of Arrival: Ambulatory TRAVEL OUTSIDE OF THE [place] IN LAST 30 DAYS: No - HPI Patient complains to provider of: Elevated blood pressure Notes: Patient was seen in her dial painter today patient states she did not take her blood pressure medication upon leaving noticed that her blood pressure is elevated and encouraged to come to the ER by the dial painter for further evaluation of her blood pressure. Patient states no symptoms no headaches fevers chills nausea vomiting diarrhea numbness tingling unilateral weakness chest pain. Patient is resting comfortably upon my evaluation patient did receive clonidine prior to my evaluation. - Related Data Allergies/Adverse Reactions: hydrocodone [Hydrocodone] Allergy (Severe, Verified 12/27/16 11:16) Hives naproxen sodium [From Aleve] Allergy (Severe, Verified 12/27/16 11:16) tremors pregabalin [From Lyrica] Allergy (Severe, Verified 12/27/16 11:16) Hallucinations strawberry [[place]] Allergy (Severe, Verified 12/27/16 11:16) Hives Home Medications: Current Home Medications Oxycodone HCl/Acetaminophen [Percocet 5-325 mg Tablet] 1 - 2 tab PO DAILY [History] Past Medical History - General Information source: Patient - Social History Smoking Status: Unknown if Ever Smoked Family History: Reviewed & Not Pertinent Patient has suicidal ideation: No Patient has homicidal ideation: No - Past Medical History Cardiac Medical History: Reports: Hx Hypertension Denies: Hx Coronary Artery Disease, Hx Heart Attack Pulmonary Medical History: Reports: Hx Asthma - as child-not currently, Hx Bronchitis, Hx Pneumonia Denies: Hx COPD Neurological Medical History: Reports: Hx Migraine. Denies: Hx Cerebrovascular Accident, Hx Seizures Endocrine Medical History: Reports: Hx Diabetes Mellitus Type 2 - diet control Renal/ Medical History: Denies: Hx Peritoneal Dialysis GI Medical History: Reports: Hx Gastroesophageal Reflux Disease, Hx Hiatal Hernia, Hx Colonoscopy, Hx Endoscopy Musculoskeltal Medical History: Reports Hx Arthritis - fibromyalgia, Reports Hx Fibromyalgia Traumatic Medical History: Reports: Hx Fractures - Arm leg ankle Past Surgical History: Reports: Hx Hysterectomy, Hx Oral Surgery - Dental surgery, Hx Tubal Ligation - Immunizations Hx Diphtheria, Pertussis, Tetanus Vaccination: Yes Hx Pneumococcal Vaccination: 11/26/12 Review of Systems - Review of Systems Constitutional: Other - Hypertension EENT: No symptoms reported Cardiovascular: No symptoms reported Respiratory: No symptoms reported Gastrointestinal: No symptoms reported Genitourinary: No symptoms reported Female Genitourinary: No symptoms reported Musculoskeletal: No symptoms reported Skin: No symptoms reported Hematologic/Lymphatic: No symptoms reported Neurological/Psychological: No symptoms reported Physical Exam - Vital signs Vitals: Temp Pulse Resp BP Pulse Ox 97.8 F 79 20 182/120 H 97 12/27/16 11:19 12/27/16 11:19 12/27/16 11:19 12/27/16 11:19 12/27/16 11:19 Interpretation: Hypertensive - General General appearance: Appears well, Alert - HEENT Head: Normocephalic, Atraumatic Eyes: Normal Pupils: PERRL - Respiratory Respiratory status: No respiratory distress Chest status: Nontender Breath sounds: Normal Chest palpation: Normal - Cardiovascular Rhythm: Regular Heart sounds: Normal auscultation Murmur: No - Abdominal Inspection: Normal Distension: No distension Bowel sounds: Normal Tenderness: Nontender Organomegaly: No organomegaly - Back Back: Normal, Nontender - Extremities General upper extremity: Normal inspection, Nontender, Normal color, Normal ROM , Normal temperature General lower extremity: Normal inspection, Nontender, Normal color, Normal ROM , Normal temperature, Normal weight bearing. No: Nicole's sign - Neurological Neuro grossly intact: Yes Cognition: Normal Orientation: AAOx4 [place] Coma Scale Eye Opening: Spontaneous [place] Coma Scale Verbal: Oriented [place] Coma Scale Motor: Obeys Commands [place] Coma Scale Total: 15 Speech: Normal Motor strength normal: LUE, RUE, LLE, RLE Sensory: Normal - Psychological Associated symptoms: Normal affect, Normal mood - Skin Skin Temperature: Warm Skin Moisture: Dry Skin Color: Normal Course - Re-evaluation Re-evalutation: 12/27/16 15:55 Patient with a symptom medic hypertension more likely due to not taking her medication this morning. Patient was encouraged to take her medication as prescribed follow-up with her primary care physician for further control of her blood pressure medications. - Vital Signs Vital signs: Temp Pulse Resp BP Pulse Ox 97.8 F 79 17 163/94 H 95 12/27/16 11:19 12/27/16 11:19 12/27/16 13:01 12/27/16 13:01 12/27/16 13:01 - Laboratory Result Diagrams: 12/27/16 11:45 12/27/16 11:45 Laboratory results interpreted by me: 12/27/16 11:45 Glucose 137 H Alkaline Phosphatase 142 H Discharge - Discharge Clinical Impression: Hypertension Qualifiers: Hypertension type: essential hypertension Qualified Code(s): I10 - Essential ( primary) hypertension Condition: Good Disposition: HOME, SELF-CARE Instructions: High Blood Pressure, Requiring Treatment (OM) Additional Instructions: Your blood pressure was elevated today you were given a dose of clonidine this has lowered your blood pressure. To continue to control your blood pressure please take your blood pressure medication as prescribed. Would highly recommend following up with your primary care physician. Your primary care physician will be the doctor that will help to control your blood pressure. Referrals: ALINA PHILLIPS MD [Primary Care Provider] - Follow up as needed
[2016-12-27 13:02] VITALS: BP 163/94
== END 2016-12-27 13:20 | disposition home or self-care (01) ==
LOC: ER 11:11
DX: I10 Essential (primary) hypertension (principal); Z90.710 Acquired absence of both cervix and uterus
CPT/HCPCS: 99283; 36415; 85025; 80053; A9270

== ENCOUNTER 2018-02-06 16:05 | Emergency (ER) | payer MEDICARE, MEDICAID ==
--- NOTE | 2018-02-06 16:35 | ER Document Report ---
ED Medical Screen (RME) - General Chief Complaint: General Weakness Stated Complaint: BACK/LEG PAIN Time Seen by Provider: 02/06/18 16:25 Notes: 67-year-old female patient comes emergency room complaining of blurry vision, generalized weakness, pain in the left back and flank, urinary frequency, falling 6 times in the past week, right leg pain. She had blood pressure medication adjustments recently and her doctor told her her symptoms were due to her blood pressure being too low. At this time she seems a little confused, her speech seems a little slurred and her blood pressure is 150 systolic so a more extensive workup will be started. I have greeted and performed a rapid initial assessment of this patient. A comprehensive ED assessment and evaluation of the patient, analysis of test results and completion of the medical decision making process will be conducted by additional ED providers. TRAVEL OUTSIDE OF THE [place] IN LAST 30 DAYS: No - Related Data Allergies/Adverse Reactions: hydrocodone [Hydrocodone] Allergy (Severe, Verified 12/27/16 11:16) Hives naproxen sodium [From Aleve] Allergy (Severe, Verified 12/27/16 11:16) tremors pregabalin [From Lyrica] Allergy (Severe, Verified 12/27/16 11:16) Hallucinations strawberry [[place]] Allergy (Severe, Verified 12/27/16 11:16) Hives Past Medical History - Past Medical History Cardiac Medical History: Reports: Hx Hypertension Denies: Hx Coronary Artery Disease, Hx Heart Attack Pulmonary Medical History: Reports: Hx Asthma - as child-not currently, Hx Bronchitis, Hx Pneumonia Denies: Hx COPD Neurological Medical History: Reports: Hx Migraine. Denies: Hx Cerebrovascular Accident, Hx Seizures Endocrine Medical History: Reports: Hx Diabetes Mellitus Type 2 - diet control Renal/ Medical History: Denies: Hx Peritoneal Dialysis GI Medical History: Reports: Hx Gastroesophageal Reflux Disease, Hx Hiatal Hernia, Hx Colonoscopy, Hx Endoscopy Musculoskeltal Medical History: Reports Hx Arthritis - fibromyalgia, Reports Hx Fibromyalgia Traumatic Medical History: Reports: Hx Fractures - Arm leg ankle Past Surgical History: Reports: Hx Hysterectomy, Hx Oral Surgery - Dental surgery, Hx Tubal Ligation - Immunizations Hx Diphtheria, Pertussis, Tetanus Vaccination: Yes Physical Exam - Vital signs Vitals: Temp Pulse Resp BP Pulse Ox 98.0 F 105 H 20 150/84 H 95 02/06/18 16:16 02/06/18 16:16 02/06/18 16:16 02/06/18 16:16 02/06/18 16:16 Course - Vital Signs Vital signs: Temp Pulse Resp BP Pulse Ox 98.0 F 105 H 20 150/84 H 95 02/06/18 16:16 02/06/18 16:16 02/06/18 16:16 02/06/18 16:16 02/06/18 16:16 Doctor's Discharge - Discharge Referrals: ALINA PHILLIPS MD [Primary Care Provider] - Follow up as needed
--- NOTE | 2018-02-06 17:19 | RADIOLOGY REPORT (SQ) ---
EXAM DESCRIPTION: CT HEAD WITHOUT COMPLETED DATE/TIME: 02/06/2018 5:02 pm REASON FOR STUDY: Blurred vision, falling down, slurred speech COMPARISON: None. TECHNIQUE: Axial images acquired through the brain without intravenous contrast. Images reviewed wi th bone, brain and subdural windows. Additional sagittal and coronal reconstructions were generated. Images stored on PACS. All CT scanners at this facility use dose modulation, iterative reconstruction, and/or weight based d osing when appropriate to reduce radiation dose to as low as reasonably achievable (ALARA). [facility]: Dose Right [facility]: CareDose [facility]: Dose Right [facility]: Teradose 4D [facility]: [employer] RADIATION DOSE: CT Rad equipment meets quality standard of care and radiation dose reduction techniq ues were employed. CTDIvol: 53.2 mGy. DLP: 964 mGy-cm. mGy. LIMITATIONS: None. FINDINGS: VENTRICLES: Normal size and contour. CEREBRUM: No masses. No hemorrhage. No midline shift. No evidence for acute infarction. Normal gra y/white matter differentiation. No areas of low density in the white matter. CEREBELLUM: No masses. No hemorrhage. No alteration of density. No evidence for acute infarction. EXTRAAXIAL SPACES: No fluid collections. No masses. ORBITS AND GLOBE: No intra- or extraconal masses. Normal contour of globe without masses. CALVARIUM: No fracture. PARANASAL SINUSES: No fluid or mucosal thickening. SOFT TISSUES: No mass or hematoma. OTHER: No other significant finding. IMPRESSION: NORMAL BRAIN CT WITHOUT CONTRAST. EVIDENCE OF ACUTE STROKE: NO. COMMENT: Quality ID # [id number]: Final reports with documentation of one or more dose reduction techniques (e.g., Automated exposure control, adjustment of the mA and/or kV according to patient size, use of iterative reconstruction technique) TECHNICAL DOCUMENTATION: JOB ID: [id number] [email or web address]- All Rights Reserved Reading location - IP/workstation name: [email or web address]
[2018-02-06 17:34] LABS: ABSOLUTE BASOPHILS # (AUTO) 0.1 10^3/uL (0.0-0.2); ABSOLUTE EOSINOPHILS # (AUTO) 0.1 10^3/uL (0.0-0.6); ABSOLUTE LYMPHOCYTES (AUTO) 2.3 10^3/uL (0.5-4.7); ABSOLUTE MONOCYTES (AUTO) 0.4 10^3/uL (0.1-1.4); ABSOLUTE NEUT (AUTO) 2.9 10^3/uL (1.7-8.2); BASOPHILS % (AUTO) 1.4 % (0-2); EOSINOPHILS % (AUTO) 1.8 % (0-6); HEMATOCRIT 39.6 % (36.0-47.0); HEMOGLOBIN 13.4 g/dL (12.0-15.5); LYMPHOCYTES % (AUTO) 39.6 % (13-45); MEAN CORPUSCULAR HEMOGLOBIN 30.6 pg (27.0-33.4); MEAN CORPUSCULAR HGB CONC 33.9 g/dL (32.0-36.0); MEAN CORPUSCULAR VOLUME 90 fl (80-97); MONOCYTES % (AUTO) 6.3 % (3-13); PLATELET COUNT 210 10^3/uL (150-450); RED CELL DISTRIBUTION WIDTH 13.5 % (11.5-14.0); SEGMENTED NEUTROPHILS % (AUTO) 50.9 % (42-78); TOTAL CELLS COUNTED % (AUTO) 100 %; WHITE BLOOD COUNT 5.7 10^3/uL (4.0-10.5)
[2018-02-06 18:05] LABS: ALANINE AMINOTRANSFERASE 39 U/L (9-52); ALBUMIN 4.1 g/dL (3.5-5.0); ALKALINE PHOSPHATASE 152 U/L (38-126); ANION GAP 13 (5-19); ASPARTATE AMINO TRANSFERASE 38 U/L (14-36); BILIRUBIN,DIRECT 0.3 mg/dL (0.0-0.4); BILIRUBIN,TOTAL 0.6 mg/dL (0.2-1.3); BLOOD UREA NITROGEN 20 mg/dL (7-20); CALCIUM 9.6 mg/dL (8.4-10.2); CARBON DIOXIDE 25 mmol/L (22-30); CHLORIDE 93 mmol/L (98-107); CREATINE KINASE 76 U/L (30-135); POTASSIUM 4.6 mmol/L (3.6-5.0); SODIUM 131.2 mmol/L (137-145); TOTAL PROTEIN 7.1 g/dL (6.3-8.2)
[2018-02-06 18:15] LABS: CREATINE KINASE MB 0.32 ng/mL (<4.55)
[2018-02-06 18:16] LABS: TROPONIN I < 0.012 ng/mL
[2018-02-06 18:26] LABS: GLUCOSE 546 mg/dL (75-110)
[2018-02-06] MEDS ORDERED: NORMAL SALINE 1000 ML 1,000 ML IV ONE (18:34)
[2018-02-06] MEDS ORDERED: INSULIN REG, HUMAN 100 UNIT/ML 3 ML VIAL (PYX) SUBCUT ONE (18:34)
[2018-02-06 19:01] LABS: APPEARANCE,URINE CLEAR; BILIRUBIN,URINE NEGATIVE (NEGATIVE); COLOR,URINE STRAW; GLUCOSE, URINE >=500 mg/dL (NEGATIVE); KETONES,URINE 20 mg/dL (NEGATIVE); LEUKOCYTE ESTERASE,URINE NEGATIVE (NEGATIVE); NITRITE,URINE POSITIVE (NEGATIVE); PROTEIN,URINE NEGATIVE (NEGATIVE); URINE SPECIFIC GRAVITY 1.031; UROBILINOGEN,URINE NEGATIVE mg/dL (<2.0)
[2018-02-06] MEDS ORDERED: GLIPIZIDE XL 5 MG TAB.ER.24 PO ONE (19:30)
[2018-02-06] MEDS ORDERED: METOCLOPRAMIDE HCL INJ/PF 10 MG/2 ML SDV IV ONE (19:30)
--- NOTE | 2018-02-06 19:34 | ER Document Report ---
ED General - General Chief Complaint: General Weakness Stated Complaint: BACK/LEG PAIN Time Seen by Provider: 02/06/18 16:25 Notes: Patient is a 67-year-old female with a past medical history of hypertension, hyperlipidemia, morbid obesity, type 2 diabetes, presents with complaints of feeling generally weak, lightheaded, having blurring of vision that has been ongoing for the past several weeks. Nothing is new or different regarding her symptoms today but her son wanted to come to be seen by a doctor given the duration of her symptoms. The patient does not regular check her blood sugars. She has not seen her general physician regarding today's concerns. She denies any chest pain, shortness of breath, focal weakness or numbness. No confusion. No syncope. Denies a long-standing history of similar symptoms prior to the past several weeks. Nothing seems to improve or worsen her symptoms. TRAVEL OUTSIDE OF THE [place] IN LAST 30 DAYS: No - Related Data Allergies/Adverse Reactions: hydrocodone [Hydrocodone] Allergy (Severe, Verified 12/27/16 11:16) Hives naproxen sodium [From Aleve] Allergy (Severe, Verified 12/27/16 11:16) tremors pregabalin [From Lyrica] Allergy (Severe, Verified 12/27/16 11:16) Hallucinations strawberry [[place]] Allergy (Severe, Verified 12/27/16 11:16) Hives Past Medical History - General Information source: Patient, Relative - Social History Smoking Status: Never Smoker Frequency of alcohol use: None Drug Abuse: None Lives with: Family Family History: Reviewed & Not Pertinent Patient has suicidal ideation: No Patient has homicidal ideation: No - Past Medical History Cardiac Medical History: Reports: Hx Hypertension Denies: Hx Coronary Artery Disease, Hx Heart Attack Pulmonary Medical History: Reports: Hx Asthma - as child-not currently, Hx Bronchitis, Hx Pneumonia Denies: Hx COPD Neurological Medical History: Reports: Hx Migraine. Denies: Hx Cerebrovascular Accident, Hx Seizures Endocrine Medical History: Reports: Hx Diabetes Mellitus Type 2 - diet control Renal/ Medical History: Denies: Hx Peritoneal Dialysis GI Medical History: Reports: Hx Gastroesophageal Reflux Disease, Hx Hiatal Hernia, Hx Colonoscopy, Hx Endoscopy Musculoskeletal Medical History: Reports Hx Arthritis - fibromyalgia, Reports Hx Fibromyalgia Traumatic Medical History: Reports: Hx Fractures - Arm leg ankle Past Surgical History: Reports: Hx Hysterectomy, Hx Oral Surgery - Dental surgery, Hx Tubal Ligation - Immunizations Hx Diphtheria, Pertussis, Tetanus Vaccination: Yes Hx Pneumococcal Vaccination: 11/26/12 Review of Systems - Review of Systems Notes: Constitutional: Negative for fever. Positive for fatigue and general weakness HENT: Negative for sore throat. Eyes: Positive for blurring of vision Cardiovascular: Negative for chest pain. Respiratory: Negative for shortness of breath. Gastrointestinal: Negative for abdominal pain, vomiting or diarrhea. Genitourinary: Negative for dysuria. Musculoskeletal: Negative for back pain. Skin: Negative for rash. Neurological: Negative for headaches, weakness or numbness. 10 point ROS negative except as marked above and in HPI. Physical Exam - Vital signs Vitals: Temp Pulse Resp BP Pulse Ox 98.0 F 105 H 20 150/84 H 95 02/06/18 16:16 02/06/18 16:16 02/06/18 16:16 02/06/18 16:16 02/06/18 16:16 Interpretation: Hypertensive, Tachycardic Notes: PHYSICAL EXAMINATION: GENERAL: Well-appearing, well-nourished and in no acute distress. HEAD: Atraumatic, normocephalic. EYES: Pupils equal round and reactive to light, extraocular movements intact, sclera anicteric, conjunctiva are normal. ENT: nares patent, oropharynx clear without exudates. Dry mucous membranes. NECK: Normal range of motion, supple without lymphadenopathy LUNGS: Breath sounds clear to auscultation bilaterally and equal. No wheezes rales or rhonchi. HEART: Regular rate and rhythm without murmurs ABDOMEN: Soft, nontender, normoactive bowel sounds. No guarding, no rebound. No masses appreciated. EXTREMITIES: Normal range of motion, no pitting or edema. No cyanosis. NEUROLOGICAL: Face symmetric. Tongue protrudes midline. Extraocular motions intact. Pupils are 2 mm and equally reactive. Normal speech, normal gait. 5 out of 5 strength in both the distal and proximal upper and lower extremities bilaterally. Sensation is grossly intact throughout. Finger to nose testing normal. Pronator drift normal. PSYCH: Normal mood, normal affect. SKIN: Warm, Dry, normal turgor, no rashes or lesions noted. Course - Re-evaluation Re-evalutation: 02/06/18 19:30 Patient presents with multiple complaints although her main concern is about blurring of vision, feeling of generalized weakness and fatigue. She denies any focal neurologic deficits. On examination NIH stroke scale is 0, again there are no focal deficits. She is laughing and joking with me during examination. The patient's symptoms are likely due to severe hyperglycemia with a blood sugar of over 500. I did have an extensive conversation with the patient who does admit that she does not regular check her blood sugar, are currently only taking metformin. I have advised the patient that the main issue here is that the patient is morbidly obese with a BMI of 50 and that she needs to lose weight and start modifying her diet as she admits to excessive consumption of sugary donna erages. I have also added glipizide to her current regimen of metformin. I have advised her that she will need to follow-up closely with her primary care physician as she may require initiation of insulin. The remainder of her laboratories as well as a CT of the head obtained in triage are otherwise unremarkable. Clinical history and exam is not consistent with occult sepsis, urine is clear for any evidence of infection, no history or exam nor CT findings to suggest intracranial bleed or mass. At this time will discharge with return precautions and follow-up recommendations. Verbal discharge instructions given a the bedside and opportunity for questions given. Medication warnings revie wed. Patient is in agreement with this plan and has verbalized understanding of return precautions and the need for primary care follow-up in the next 24-72 hours. - Vital Signs Vital signs: Temp Pulse Resp BP Pulse Ox 97.4 F 94 16 135/66 H 97 02/06/18 20:36 02/06/18 20:36 02/06/18 20:36 02/06/18 20:36 02/06/18 20:36 - Laboratory Result Diagrams: 02/06/18 17:20 02/06/18 17:20 Laboratory results interpreted by me: 02/06/18 02/06/18 02/06/18 17:20 18:37 19:56 Sodium 131.2 L Chloride 93 L Glucose 546 H* POC Glucose 397 H AST 38 H Alkaline Phosphatase 152 H Urine Glucose (UA) >=500 H Urine Ketones 20 H Urine Nitrite POSITIVE H - Diagnostic Test Radiology reviewed: Image reviewed, Reports reviewed Radiology results interpreted by me: 02/06/18 19:32 CT head: No acute intracranial bleed or mass - EKG Interpretation by Me Additional EKG results interpreted by me: 02/06/18 19:32 Sinus tachycardia, rate 102. No ST elevations or depressions. QTC is 480. Discharge - Discharge Clinical Impression: Hyperglycemia, Generalized weakness, Morbid obesity Condition: Good Disposition: HOME, SELF-CARE Additional Instructions: You need to followup urgently with your primary care doctor as your blood sugars were dangerously high today. You did not have any evidence of a dangerous condition associated with these blood sugars at this time. However, it is very important that you get your blood sugars under control. Please take all of your medications exactly as directed. You should avoid foods that are high in carbohydrates and sugary foods. Losing weight will also help to better control your blood sugars. Please return to emergency department immediately if you develop weakness, persistent vomiting, confusion, or any other symptoms that are concerning to you. Prescriptions: Glipizide [Glipizide Xl] 10 mg PO DAILY #30 tab.er.[id number] Referrals: ALINA PHILLIPS MD [Primary Care Provider] - Follow up in 3-5 days
[2018-02-06 20:46] VITALS: BP 135/66
--- NOTE | 2018-02-07 06:38 | EKG REPORT ---
SEVERITY:- BORDERLINE ECG - SINUS TACHYCARDIA BORDERLINE T WAVE ABNORMALITIES : Confirmed by: Chris Paniagua MD 07-Feb-2018 06:37:45
== END 2018-02-06 20:52 | disposition home or self-care (01) ==
LOC: ER 16:05
DX: E11.65 Type 2 diabetes mellitus with hyperglycemia (principal); R53.1 Weakness; E66.01 Morbid (severe) obesity due to excess calories; I10 Essential (primary) hypertension; E11.9 Type 2 diabetes mellitus without complications; R42 Dizziness and giddiness; H53.8 Other visual disturbances; J45.909 Unspecified asthma, uncomplicated
CPT/HCPCS: 93005; 99285; 96361; 96374; 36415; 82553; 82962; 82550; 83735; 85025; 80053; 81001; 84484; 70450; 93010; J2765; A9270 ×2; J7030; J1815

== ENCOUNTER 2018-05-14 13:54 | Observation (INO) | payer MEDICARE, MEDICAID ==
[2018-05-14] MEDS ORDERED: MECLIZINE HCL 25 MG TABLET PO ONE (15:02)
[2018-05-14] MEDS ORDERED: ONDANSETRON HCL INJ/PF 4 MG/2 ML SDV IV ONE ×3 (15:02→20:51)
[2018-05-14 15:27] LABS: ABSOLUTE EOSINOPHILS # (AUTO) 0.1 10^3/uL (0.0-0.6); ABSOLUTE LYMPHOCYTES (AUTO) 1.9 10^3/uL (0.5-4.7); ABSOLUTE MONOCYTES (AUTO) 0.3 10^3/uL (0.1-1.4); BASOPHILS % (AUTO) 0.8 % (0-2); EOSINOPHILS % (AUTO) 2.5 % (0-6); HEMATOCRIT 39.1 % (36.0-47.0); HEMOGLOBIN 13.4 g/dL (12.0-15.5); LYMPHOCYTES % (AUTO) 43.9 % (13-45); MEAN CORPUSCULAR HEMOGLOBIN 31.1 pg (27.0-33.4); MEAN CORPUSCULAR HGB CONC 34.3 g/dL (32.0-36.0); MEAN CORPUSCULAR VOLUME 91 fl (80-97); MONOCYTES % (AUTO) 6.9 % (3-13); PLATELET COUNT 331 10^3/uL (150-450); RED BLOOD COUNT 4.32 10^6/uL (3.72-5.28); RED CELL DISTRIBUTION WIDTH 13.4 % (11.5-14.0); SEGMENTED NEUTROPHILS % (AUTO) 45.9 % (42-78); TOTAL CELLS COUNTED % (AUTO) 100 %; WHITE BLOOD COUNT 4.3 10^3/uL (4.0-10.5)
--- NOTE | 2018-05-14 15:37 | RADIOLOGY REPORT (SQ) ---
EXAM DESCRIPTION: CHEST SINGLE VIEW COMPLETED DATE/TIME: 05/14/2018 3:18 pm REASON FOR STUDY: dizzy, diaphoresis, upper back pain COMPARISON: 08/31/2015 EXAM PARAMETERS: NUMBER OF VIEWS: One view. TECHNIQUE: Single frontal radiographic view of the chest acquired. RADIATION DOSE: NA LIMITATIONS: None. FINDINGS: LUNGS AND PLEURA: No opacities, masses or pneumothorax. No pleural effusion. MEDIASTINUM AND HILAR STRUCTURES: No masses. Contour normal. HEART AND VASCULAR STRUCTURES: Heart normal in size. Normal vasculature. BONES: No acute findings. HARDWARE: None in the chest. OTHER: No other significant finding. IMPRESSION: NO ACUTE RADIOGRAPHIC FINDING IN THE CHEST. TECHNICAL DOCUMENTATION: JOB ID: [id number] [employer]- All Rights Reserved Reading location - IP/workstation name: [email or web address]
[2018-05-14] MEDS ORDERED: ASPIRIN 81 MG TABLET, CHEWABLE PO ONE (15:39)
--- NOTE | 2018-05-14 15:40 | RADIOLOGY REPORT (SQ) ---
EXAM DESCRIPTION: CT HEAD WITHOUT COMPLETED DATE/TIME: 05/14/2018 3:15 pm REASON FOR STUDY: vertigo, vomiting COMPARISON: 02/06/2018 TECHNIQUE: Axial images acquired through the brain without intravenous contrast. Images reviewed wi th bone, brain and subdural windows. Additional sagittal and coronal reconstructions were generated. Images stored on PACS. All CT scanners at this facility use dose modulation, iterative reconstruction, and/or weight based d osing when appropriate to reduce radiation dose to as low as reasonably achievable (ALARA). [facility]: Dose Right [facility]: CareDose [facility]: Dose Right [facility]: Teradose 4D [facility]: [employer] RADIATION DOSE: CT Rad equipment meets quality standard of care and radiation dose reduction techniq ues were employed. CTDIvol: 53.2 mGy. DLP: 911 mGy-cm. mGy. LIMITATIONS: None. FINDINGS: VENTRICLES: Normal size and contour. CEREBRUM: No masses. No hemorrhage. No midline shift. No evidence for acute infarction. Unchanged focal hypodensity of the right fish radiata (series 2, image 19). CEREBELLUM: No masses. No hemorrhage. No alteration of density. No evidence for acute infarction. EXTRAAXIAL SPACES: No fluid collections. No masses. ORBITS AND GLOBE: No intra- or extraconal masses. Normal contour of globe without masses. CALVARIUM: No fracture. PARANASAL SINUSES: No fluid or mucosal thickening. SOFT TISSUES: No mass or hematoma. OTHER: No other significant finding. IMPRESSION: No acute intracranial pathology. EVIDENCE OF ACUTE STROKE: NO. COMMENT: Quality ID # 436: Final reports with documentation of one or more dose reduction techniques (e.g., Automated exposure control, adjustment of the mA and/or kV according to patient size, use of iterative reconstruction technique) TECHNICAL DOCUMENTATION: JOB ID: [id number] [employer]- All Rights Reserved Reading location - IP/workstation name: [email or web address]
[2018-05-14 15:47] LABS: ALANINE AMINOTRANSFERASE 35 U/L (9-52); ALBUMIN 4.2 g/dL (3.5-5.0); ALKALINE PHOSPHATASE 116 U/L (38-126); ANION GAP 13 (5-19); ASPARTATE AMINO TRANSFERASE 47 U/L (14-36); BILIRUBIN,DIRECT 0.3 mg/dL (0.0-0.4); BILIRUBIN,TOTAL 0.4 mg/dL (0.2-1.3); BLOOD UREA NITROGEN 15 mg/dL (7-20); CALCIUM 9.8 mg/dL (8.4-10.2); CARBON DIOXIDE 24 mmol/L (22-30); CHLORIDE 99 mmol/L (98-107); CREATINE KINASE 98 U/L (30-135); GLUCOSE 144 mg/dL (75-110); SODIUM 135.5 mmol/L (137-145); TOTAL PROTEIN 7.8 g/dL (6.3-8.2)
[2018-05-14] MEDS ORDERED: NITROGLYCERIN/D5W 50 MG/250 ML RTUINJ IV PRN (15:54)
--- NOTE | 2018-05-14 15:56 | ER Document Report ---
ED General - General Chief Complaint: Nausea/Vomiting Stated Complaint: NAUSEA AND VOMITING Time Seen by Provider: 05/14/18 14:46 Primary Care Provider: ALINA PHILLIPS MD [Primary Care Provider] - Follow up as needed TRAVEL OUTSIDE OF THE [place] IN LAST 30 DAYS: No - HPI Notes: Patient presents to the emergency department for evaluation. She states she woke up this morning and had breakfast. She had juice, water, and a salad. She vomited shortly afterwards. She states since then she has been very dizzy. At one point she became extremely diaphoretic. She has had multiple episodes of nonbloody, nonbilious emesis. She denies any pain at this time. She states she has been taking her medications as prescribed. On further questioning the patient states that she did have some heaviness in the left side of her chest earlier today but it resolved. - Related Data Allergies/Adverse Reactions: hydrocodone [Hydrocodone] Allergy (Severe, Verified 05/14/18 14:24) Hives naproxen sodium [From Aleve] Allergy (Severe, Verified 05/14/18 14:24) tremors pregabalin [From Lyrica] Allergy (Severe, Verified 05/14/18 14:24) Hallucinations strawberry [[place]] Allergy (Severe, Verified 05/14/18 14:24) Hives Past Medical History - General Information source: Patient - Social History Smoking Status: Never Smoker Chew tobacco use (# tins/day): No Frequency of alcohol use: None Drug Abuse: None Family History: DM, Hypertension Patient has suicidal ideation: No Patient has homicidal ideation: No - Past Medical History Cardiac Medical History: Reports: Hx Hypertension Denies: Hx Coronary Artery Disease, Hx Heart Attack Pulmonary Medical History: Reports: Hx Asthma - as child-not currently, Hx Bronchitis, Hx Pneumonia Denies: Hx COPD Neurological Medical History: Reports: Hx Migraine. Denies: Hx Cerebrovascular Accident, Hx Seizures Endocrine Medical History: Reports: Hx Diabetes Mellitus Type 2 - diet control Renal/ Medical History: Denies: Hx Peritoneal Dialysis GI Medical History: Reports: Hx Gastroesophageal Reflux Disease, Hx Hiatal Hernia, Hx Colonoscopy, Hx Endoscopy Musculoskeletal Medical History: Reports Hx Arthritis - fibromyalgia, Reports Hx Fibromyalgia Traumatic Medical History: Reports: Hx Fractures - Arm leg ankle Past Surgical History: Reports: Hx Hysterectomy, Hx Oral Surgery - Dental surgery, Hx Tubal Ligation - Immunizations Hx Diphtheria, Pertussis, Tetanus Vaccination: Yes Hx Pneumococcal Vaccination: 11/26/12 Review of Systems - Review of Systems Constitutional: Weakness EENT: No symptoms reported Cardiovascular: See HPI Respiratory: See HPI Gastrointestinal: See HPI Genitourinary: No symptoms reported Physical Exam - Vital signs Vitals: Temp Pulse Resp BP Pulse Ox 98.9 F 70 20 186/101 H 100 05/14/18 14:24 05/14/18 14:24 05/14/18 14:24 05/14/18 14:24 05/14/18 14:24 Course - Re-evaluation Re-evalutation: 05/14/18 21:21 Patient presents to the emergency department for evaluation of dizziness, nausea, vomiting, diaphoresis. This is an obese diabetic patient. I am co ncerned about the possibility of a cardiac etiology. She was treated for potential vertigo, given nausea medication. Her EKG does reveal anterolateral T wave inversions which are new from prior study back in January. She remained hypertensive. Given this information she was started on a nitroglycerin drip. Her blood pressure did come down appropriately. She never had any chest pressure or pain while here. She did continue to have some nausea. She had no episodes of diaphoresis. Later in the course of her stay, the patient did complain of an increase in nausea as well as some abdominal pain. This was the first time she had abdominal pain. It was in her lower abdomen. She was wicho jacob with nausea medication, pain medication. I did send her for CT scan of the abdomen and pelvis. Her cardiac enzymes have been negative x2. She remains otherwise stable, will continue to monitor. 05/14/18 22:46 Patient's nausea and abdominal pain have improved. CT scan of the abdomen and pelvis was unremarkable. She continues to feel nauseated and just unwell but denies any vertigo at this time. States she just feels slightly dizzy. She is still on the nitroglycerin drip, her blood pressures are in the 160s. This patient has a heart score of 6. She believes she may have had a stress test in 2017 in this facility, but I am unable to find any reports regarding this. She has multiple risk factors, plan will be to admit the patient for further care. - Vital Signs Vital signs: Temp Pulse Resp BP Pulse Ox 98.9 F 70 12 151/98 H 91 L 05/14/18 14:24 05/14/18 14:24 05/14/18 22:10 05/14/18 22:10 05/14/18 22:10 - Laboratory Result Diagrams: 05/14/18 13:36 05/14/18 13:36 Laboratory results interpreted by me: 05/14/18 13:36 Sodium 135.5 L Glucose 144 H AST 47 H - Diagnostic Test Radiology reviewed: Reports reviewed - CT scan of the head and chest x-ray are unremarkable for acute process per radiology. - EKG Interpretation by Me Additional EKG results interpreted by me: 05/14/18 21:23 Sinus mechanism with a rate of 68 bpm. Normal axis. First-degree AV block. T wave inversions in anterolateral leads, concerning for ischemia. This is changed when compared to prior study of February 06, 2018. Discharge - Discharge Clinical Impression: Chest pain, Dizziness, Hypertensive urgency Condition: Stable Disposition: ADMITTED OBSERVATION Admitting Provider: Hospitalist - [facility] Admitted: Telemetry Referrals: ALINA PHILLIPS MD [Primary Care Provider] - Follow up as needed
[2018-05-14 15:59] LABS: CREATINE KINASE MB 0.35 ng/mL (<4.55)
[2018-05-14 16:10] LABS: TROPONIN I < 0.012 ng/mL
[2018-05-14 16:14] LABS: A TYPE INFLUENZA AG NEGATIVE (NEGATIVE); B INFLUENZA AG NEGATIVE (NEGATIVE)
[2018-05-14] MEDS ORDERED: MORPHINE SULFATE 10 MG/ML INJ IV ONE ×2 (18:44→20:51)
--- NOTE | 2018-05-14 20:15 | EKG REPORT ---
SEVERITY:- ABNORMAL ECG - SINUS ARRHYTHMIA, RATE 54-75 ABNORMAL T, CONSIDER ISCHEMIA, DIFFUSE LEADS : Confirmed by: Amara Multani MD 14-May-2018 20:14:10
--- NOTE | 2018-05-14 22:23 | RADIOLOGY REPORT (SQ) ---
CT ABDOMEN PELVIS WITHOUT IV CONTRAST EXAM DATE: 05/14/2018 20:51 HISTORY: Periumbilical pain. COMPARISON: None. TECHNIQUE: CT scan of the abdomen and pelvis was performed without IV contrast. This exam was performed according to our departmental dose-optimization program, which includes automated exposure control, adjustment of the mA and/or kV according to patient size and/or use of iterative reconstruction technique. FINDINGS: There is scattered atelectasis at the lung bases. No pleural or pericardial effusions are seen. A small hiatal hernia is present. Hepatic steatosis. The gallbladder, spleen, pancreas, adrenal glands, and kidneys are normal without hydronephrosis or obstructing urinary stones. There has been a prior hysterectomy. The appendix is not well visualized; however there are no inflammatory changes in the right lower quadrant. No small bowel obstruction or evidence of acute diverticulitis. No intraperitoneal free fluid or free air is seen. The aorta is normal caliber and contains atherosclerotic calcifications. The osseous structures are intact. IMPRESSION: No acute abdominal or pelvic pathology.
[2018-05-14] MEDS ORDERED: HYDRALAZINE HCL INJ/PF 20 MG/1 ML SDV IV PRN (23:08)
[2018-05-14] MEDS ORDERED: GLUCAGON,HUMAN RECOMB 1 MG INJ SUBCUT PRN (23:11)
[2018-05-14] MEDS ORDERED: ACETAMINOPHEN 325 MG TABLET PO PRN (23:11)
[2018-05-14] MEDS ORDERED: DEXTROSE 50%-WATER 25 GM/50 ML DISP.SYRIN IV PRN ×2 (23:11)
[2018-05-14] MEDS ORDERED: DEXTROSE 40% GEL 15 GM TUBE PO PRN ×2 (23:11)
[2018-05-14] MEDS ORDERED: MAG HYDROX/AL HYDROX/SIMETH SUSP 30 ML UDCUP PO PRN (23:11)
[2018-05-15] MEDS: NITROGLYCERIN 2% OINTMENT 1 GM PACKET TP SCH ×4 (00:35→18:16)
[2018-05-15] MEDS: PANTOPRAZOLE SODIUM 20 MG TABLET.DR PO SCH (05:09)
--- NOTE | 2018-05-15 05:31 | PDOC H&P ---
History of Present Illness Admission Date/PCP: 05/14/18 22:57 ALINA PHILLIPS MD Patient complains of: Chest pain, dizziness nausea History of Present Illness: MADELIN HERNANDEZ is a 68 year old female with a past medical history of morbid obesity, diabetes and hypertension. She presents the emergency room with nausea and vomiting of gastric content, after a meal followed by dizziness she is brought to the emergency room for evaluation chest tightness. She is found to have hypertensive urgency in the 200 systolic range and she is placed on IV nitroglycerin and morphine. She is pain-free, workup is otherwise unremarkable and she is referred to the hospitalist for admission. Patient is clearly under the influence of morphine and unable to provide significant history regarding home medication regiment. She denies recent Accu-Cheks or blood pressure monito ring. Past Medical History Cardiac Medical History: Reports: Hypertension Denies: Coronary Artery Disease, Myocardial Infarction Pulmonary Medical History: Reports: Asthma - as child-not currently, Bronchitis, Pneumonia Denies: Chronic Obstructive Pulmonary Disease (COPD) Neurological Medical History: Reports: Migraine Denies: Seizures Endocrine Medical History: Reports: Diabetes Mellitus Type 2 - diet control GI Medical History: Reports: Gastroesophageal Reflux Disease, Hiatal Hernia Musculoskeltal Medical History: Reports: Arthritis - fibromyalgia, Fibromyalgia Hematology: Reports: Anemia - hx of Past Surgical History Past Surgical History: Reports: Hysterectomy, Tubal Ligation Social History Information Source: Patient Smoking Status: Former Smoker Last Time Smoked: 2012 Frequency of Alcohol Use: None Hx Recreational Drug Use: No Hx Prescription Drug Abuse: No - Advance Directive Resuscitation Status: Full Code Family History Family History: DM, Hypertension Parental Family History Reviewed: Yes Children Family History Reviewed: Yes Sibling(s) Family History Reviewed.: Yes Medication/Allergy Home Medications: Metoprolol Succinate 25 mg PO DAILY 12/26/14 Omeprazole 20 mg PO DAILY 12/26/14 Metformin HCl 500 mg PO BID #60 tablet 09/01/15 Oxycodone HCl/Acetaminophen [Percocet 5-325 mg Tablet] 1 - 2 tab PO DAILY PRN 12/27/16 Glipizide [Glipizide Xl] 10 mg PO DAILY #30 tab.er.24 02/06/18 Losartan/Hydrochlorothiazide [Losartan-Hctz 100-25 mg Tab] 1 tab PO DAILY 02/06/18 Allergies/Adverse Reactions: hydrocodone [Hydrocodone] Allergy (Severe, Verified 05/14/18 14:24) Hives naproxen sodium [From Aleve] Allergy (Severe, Verified 05/14/18 14:24) tremors pregabalin [From Lyrica] Allergy (Severe, Verified 05/14/18 14:24) Hallucinations strawberry [[place]] Allergy (Severe, Verified 05/14/18 14:24) Hives Review of Systems Constitutional: ABSENT: chills, fever(s), headache(s), weight gain, weight loss Eyes: ABSENT: visual disturbances Ears: ABSENT: hearing changes Cardiovascular: ABSENT: chest pain, dyspnea on exertion, edema, orthropnea, palpitations Respiratory: ABSENT: cough, hemoptysis Gastrointestinal: ABSENT: abdominal pain, constipation, diarrhea, hematemesis, hematochezia, nausea, vomiting Genitourinary: ABSENT: dysuria, hematuria Musculoskeletal: ABSENT: joint swelling Integumentary: ABSENT: rash, wounds Neurological: ABSENT: abnormal gait, abnormal speech, confusion, dizziness, focal weakness, syncope Psychiatric: ABSENT: anxiety, depression, homidical ideation, suicidal ideation Endocrine: ABSENT: cold intolerance, heat intolerance, polydipsia, polyuria Hematologic/Lymphatic: ABSENT: easy bleeding, easy bruising Physical Exam Vital Signs: Temp Pulse Resp BP Pulse Ox 97.7 F 82 12 131/75 H 98 05/15/18 03:58 05/15/18 03:58 05/15/18 03:58 05/15/18 03:58 05/15/18 03:58 Intake & Output 05/13/18 05/14/18 05/15/18 11:59 11:59 11:59 Intake Total 29 Balance 29 Weight 115.7 kg General appearance: PRESENT: no acute distress, well-developed, well-nourished Head exam: PRESENT: atraumatic, normocephalic Eye exam: PRESENT: conjunctiva pink, EOMI, PERRLA. ABSENT: scleral icterus Ear exam: PRESENT: normal external ear exam Mouth exam: PRESENT: moist, tongue midline Neck exam: ABSENT: carotid bruit, JVD, lymphadenopathy, thyromegaly Respiratory exam: PRESENT: clear to auscultation rocio. ABSENT: rales, rhonchi, wheezes Cardiovascular exam: PRESENT: RRR. ABSENT: diastolic murmur, rubs, systolic murmur Pulses: PRESENT: normal dorsalis pedis pul Vascular exam: PRESENT: normal capillary refill GI/Abdominal exam: PRESENT: normal bowel sounds, soft. ABSENT: distended, guarding, mass, organolmegaly, rebound, tenderness Rectal exam: PRESENT: deferred Extremities exam: PRESENT: full ROM. ABSENT: calf tenderness, clubbing, pedal edema Neurological exam: PRESENT: alert, awake, oriented to person, oriented to place, oriented to time, oriented to situation, CN II-XII grossly intact. ABSENT: motor sensory deficit Psychiatric exam: PRESENT: appropriate affect, normal mood. ABSENT: homicidal ideation, suicidal ideation Skin exam: PRESENT: dry, intact, warm. ABSENT: cyanosis, rash Results Laboratory Results: 05/14/18 13:36 05/14/18 13:36 05/14/18 05/14/18 05/14/18 13:36 13:36 13:36 WBC 4.3 RBC 4.32 Hgb 13.4 Hct 39.1 MCV 91 MCH 31.1 MCHC 34.3 RDW 13.4 Plt Count 331 Seg Neutrophils % 45.9 Lymphocytes % 43.9 Monocytes % 6.9 Eosinophils % 2.5 Basophils % 0.8 Absolute Neutrophils 2.0 Absolute Lymphocytes 1.9 Absolute Monocytes 0.3 Absolute Eosinophils 0.1 Absolute Basophils 0.0 Sodium 135.5 L Potassium 4.0 Chloride 99 Carbon Dioxide 24 Anion Gap 13 BUN 15 Creatinine 0.62 Est GFR ( Amer) > 60 Est GFR (Non-Af Amer) > 60 Glucose 144 H Calcium 9.8 Total Bilirubin 0.4 AST 47 H ALT 35 Alkaline Phosphatase 116 Total Protein 7.8 Albumin 4.2 TSH 0.82 05/14/18 05/14/18 05/14/18 13:36 13:36 19:15 Creatine Kinase 98 CK-MB (CK-2) 0.35 Troponin I < 0.012 < 0.012 05/15/18 01:41 Creatine Kinase CK-MB (CK-2) Troponin I < 0.012 Impressions: Chest X-Ray 05/14/18 15:00 IMPRESSION: NO ACUTE RADIOGRAPHIC FINDING IN THE CHEST. Head CT 05/14/18 15:03 IMPRESSION: No acute intracranial pathology. EVIDENCE OF ACUTE STROKE: NO. Abdomen/Pelvis CT 05/14/18 20:51 IMPRESSION: No acute abdominal or pelvic pathology. Assessment and Plan - Diagnosis (1) Hypertensive urgency Is this a current diagnosis for this admission?: Yes Plan: Patient is a poor historian. Suspected missed medications. Nitro, ARB, hydralazine and Lasix as needed. (2) Chest pain Is this a current diagnosis for this admission?: Yes Plan: Secondary to #1, serial cardiac enzymes, consider stress testing. (3) Dizziness Is this a current diagnosis for this admission?: Yes Plan: Secondary to #1, resolved, follow-up orthostatic blood pressures - Time Time Spent with patient: 15-24 minutes
[2018-05-15 08:39] LABS: APPEARANCE,URINE SLIGHTLY-CLOUDY; BILIRUBIN,URINE NEGATIVE (NEGATIVE); COLOR,URINE YELLOW; GLUCOSE, URINE NEGATIVE (NEGATIVE); KETONES,URINE TRACE mg/dL (NEGATIVE); LEUKOCYTE ESTERASE,URINE TRACE (NEGATIVE); NITRITE,URINE NEGATIVE (NEGATIVE); PROTEIN,URINE NEGATIVE (NEGATIVE); URINE SPECIFIC GRAVITY 1.021; UROBILINOGEN,URINE NEGATIVE mg/dL (<2.0)
[2018-05-15] MEDS ORDERED: LOSARTAN POTASSIUM 50 MG TABLET PO SCH (10:00)
[2018-05-15] MEDS ORDERED: GLIPIZIDE XL 5 MG TAB.ER.24 PO SCH (10:00)
[2018-05-15] MEDS: HYDROCHLOROTHIAZIDE 25 MG TABLET PO SCH (10:24)
--- NOTE | 2018-05-15 14:25 | PDOC PROGRESS REPORT ---
Subjective Progress Note for:: 05/15/18 Subjective:: MADELIN HERNANDEZ is a 68 year old female with a past medical history of morbid obesity, diabetes and hypertension. She presents the emergency room with nausea and vomiting of gastric content, after a meal followed by dizziness she is brought to the emergency room for evaluation chest tightness. She is found to have hypertensive urgency in the 200 systolic range and she is placed on IV nitroglycerin and morphine. She is pain-free, workup is otherwise unremarkable and she is referred to the hospitalist for admission. Patient is clearly under the influence of morphine and unable to provide significant history regarding home medication regiment. She denies recent Accu-Cheks or blood pressure monitoring. 05/15/2018. No acute events overnight. Patient is chest pain-free and is stating that yesterday when she was feeling dizzy she felt left-sided chest tigh tness that she had never felt before. Denies any cardiac disease however mentions that 2 years ago she had a stress test which was negative. Denies any fever, chills, nausea, vomiting, diarrhea, constipation or any urinary symptoms. Reason For Visit: CHEST PAIN HTN URGENCY, NAUSEA Physical Exam Vital Signs: Temp Pulse Resp BP Pulse Ox 98.0 F 76 16 149/88 H 99 05/15/18 12:40 05/15/18 12:40 05/15/18 12:40 05/15/18 12:40 05/15/18 12:40 Intake & Output 05/14/18 05/15/18 05/16/18 06:59 06:59 06:59 Intake Total 29 0 Balance 29 0 Weight 115.7 kg General appearance: PRESENT: no acute distress, obese, well-developed, well- nourished Head exam: PRESENT: atraumatic, normocephalic Respiratory exam: PRESENT: clear to auscultation rocio. ABSENT: rales, rhonchi, wheezes Cardiovascular exam: PRESENT: RRR. ABSENT: diastolic murmur, rubs, systolic murmur GI/Abdominal exam: PRESENT: normal bowel sounds, soft. ABSENT: distended, guarding, mass, organolmegaly, rebound, tenderness Extremities exam: PRESENT: full ROM. ABSENT: calf tenderness, clubbing, pedal edema Neurological exam: PRESENT: alert, awake, oriented to person, oriented to place, oriented to time, oriented to situation, CN II-XII grossly intact. ABSENT: motor sensory deficit Results Laboratory Results: 05/14/18 13:36 05/14/18 13:36 05/14/18 05/14/18 05/14/18 13:36 13:36 13:36 WBC 4.3 RBC 4.32 Hgb 13.4 Hct 39.1 MCV 91 MCH 31.1 MCHC 34.3 RDW 13.4 Plt Count 331 Seg Neutrophils % 45.9 Lymphocytes % 43.9 Monocytes % 6.9 Eosinophils % 2.5 Basophils % 0.8 Absolute Neutrophils 2.0 Absolute Lymphocytes 1.9 Absolute Monocytes 0.3 Absolute Eosinophils 0.1 Absolute Basophils 0.0 Sodium 135.5 L Potassium 4.0 Chloride 99 Carbon Dioxide 24 Anion Gap 13 BUN 15 Creatinine 0.62 Est GFR ( Amer) > 60 Est GFR (Non-Af Amer) > 60 Glucose 144 H Calcium 9.8 Total Bilirubin 0.4 AST 47 H ALT 35 Alkaline Phosphatase 116 Total Protein 7.8 Albumin 4.2 TSH 0.82 Urine Color Urine Appearance Urine pH Ur Specific [place] Urine Protein Urine Glucose (UA) Urine Ketones Urine Blood Urine Nitrite Ur Leukocyte Esterase Urine WBC (Auto) Urine RBC (Auto) 05/15/18 08:20 WBC RBC Hgb Hct MCV MCH MCHC RDW Plt Count Seg Neutrophils % Lymphocytes % Monocytes % Eosinophils % Basophils % Absolute Neutrophils Absolute Lymphocytes Absolute Monocytes Absolute Eosinophils Absolute Basophils Sodium Potassium Chloride Carbon Dioxide Anion Gap BUN Creatinine Est GFR ( Amer) Est GFR (Non-Af Amer) Glucose Calcium Total Bilirubin AST ALT Alkaline Phosphatase Total Protein Albumin TSH Urine Color YELLOW Urine Appearance SLIGHTLY-CLOUDY Urine pH 5.0 Ur Specific [place] 1.021 Urine Protein NEGATIVE Urine Glucose (UA) NEGATIVE Urine Ketones TRACE H Urine Blood NEGATIVE Urine Nitrite NEGATIVE Ur Leukocyte Esterase TRACE H Urine WBC (Auto) 13 Urine RBC (Auto) 0 05/14/18 05/14/18 05/14/18 13:36 13:36 19:15 Creatine Kinase 98 CK-MB (CK-2) 0.35 Troponin I < 0.012 < 0.012 05/15/18 05/15/18 01:41 07:53 Creatine Kinase CK-MB (CK-2) Troponin I < 0.012 < 0.012 Impressions: Chest X-Ray 05/14/18 15:00 IMPRESSION: NO ACUTE RADIOGRAPHIC FINDING IN THE CHEST. Head CT 05/14/18 15:03 IMPRESSION: No acute intracranial pathology. EVIDENCE OF ACUTE STROKE: NO. Abdomen/Pelvis CT 05/14/18 20:51 IMPRESSION: No acute abdominal or pelvic pathology. Assessment and Plan - Diagnosis (1) Chest pain Qualifiers: Chest pain type: other chest pain Qualified Code(s): R07.89 - Other chest pain; R07.8 - Other chest pain Is this a current diagnosis for this admission?: Yes Plan: Troponins negative x3. EKG no ischemic changes. Likely noncardiac however patient is high risk due to underlying comorbidities. HEART Score 4. Pending 2D echo and stress test. Continue antiplatelets, statins, beta-blockers, OMAIRA. (2) Hypertensive urgency Is this a current diagnosis for this admission?: Yes Plan: Likely due to noncompliance. Better controlled not optimized. Continue hydrochlorothiazide, ARB, beta blockers, hydralazine as needed. Follow-up with PCP. (3) Diabetes Qualifiers: Diabetes mellitus type: type 2 Is this a current diagnosis for this admission?: No Plan: Not controlled. A1c 9.6%. Cardiac diet, long acting insulin, pre-meal short-acting insulin, sliding scale insulin, history of needed. Restart home meds on discharge follow-up with PCP. (4) Morbid obesity with BMI of 40.0-44.9, adult Is this a current diagnosis for this admission?: No Plan: Diet and lifestyle modification.
[2018-05-15] MEDS ORDERED: DEXTROSE 50%-WATER 25 GM/50 ML DISP.SYRIN IV PRN ×2 (14:32)
[2018-05-15] MEDS ORDERED: GLUCAGON,HUMAN RECOMB 1 MG INJ IM PRN (14:32)
[2018-05-15] MEDS ORDERED: DEXTROSE 40% GEL 15 GM TUBE PO PRN ×2 (14:32)
[2018-05-15] MEDS: INSULIN LISPRO 100 UNIT/ML 3 ML VIAL SUBCUT SCH ×3 (14:41→22:16)
[2018-05-15 15:01] LABS: TRIGLYCERIDES 86 mg/dL (<150)
[2018-05-15 15:11] LABS: DIRECT LDL 128 mg/dL (<100)
[2018-05-15] MEDS: METOPROLOL TARTRATE 100 MG TABLET PO SCH (18:16)
--- NOTE | 2018-05-15 21:36 | XCELERA REPORT ---
[address] [address] Transthoracic Echocardiogram Report Name: MADELIN HERNANDEZ Age: 68 yrs Gender: Female : 1950 Patient Status: Inpatient Patient Location: [address] [place], [place] [id number] Study Date: 05/15/2018 05:40 PM Height: 60 in Weight: 255 lb BSA: 2.1 m2 Procedure: A two-dimensional transthoracic echocardiogram with color flow Doppler was performed. Study Quality: Fair. Reason For Study: CP, SOB History: Shortness of breath. Chest pain. Ordering Physician: SREE PECK Performed By: Rachele Sung Interpretation Summary The left ventricle is normal in size. There is normal left ventricular wall thickness. LV EF is 65% The left ventricular ejection fraction is within normal limits. Doppler measurements suggest impaired left ventricular relaxation, which is associated with grade I/IV or mild diastolic dysfunction The left ventricular wall motion is normal. There is no thrombus. The right ventricle is normal in size and function. The right atrium is normal. The left atrial size is normal. There is no evidence of mitral valve prolapse. There is no vegetation seen on the mitral valve. There is no mitral valve stenosis. There is a trace amount of mitral regurgitation There is no aortic valvular vegetation. There is no aortic valve stenosis There is no LVOT obstruction. No aortic regurgitation is present. There is no tricuspid stenosis. There is a trace amount of tricuspid regurgitation There is mild pulmonary hypertension by echo RVSP is 34 mm of Hg with RA mean of 10. There is no pulmonic valvular stenosis. There is no pulmonic valvular regurgitation. The aortic root is normal size. The inferior vena cava was not visualized There is no pericardial effusion. Cannot assess ASD,VSD or PFO . MMode/2D Measurements & Calculations RVDd: 2.0 cm LVIDd: 3.6 cm FS: 28.1 % Ao root diam: 2.7 cm IVSd: 1.0 cm LVIDs: 2.6 cm EDV(Teich): 55.9 ml Ao root area: 5.5 cm2 LVPWd: 1.1 cm ESV(Teich): 25.0 ml LA dimension: 3.2 cm EF(Teich): 55.3 % Doppler Measurements & Calculations MV E max pierre: MV P1/2t max pierre: Ao V2 max: LV V1 max P.3 cm/sec 97.9 cm/sec 186.8 cm/sec 9.6 mmHg MV A max pierre: MV P1/2t: 52.1 msec Ao max PG: LV V1 max: 129.8 cm/sec MVA(P1/2t): 4.2 cm2 14.0 mmHg 155.1 cm/sec MV E/A: 0.70 MV dec slope: 550.7 cm/sec2 MV dec time: 0.22 sec PA V2 max: TR max pierre: MV P1/2t-pr_phl: 129.0 cm/sec 246.3 cm/sec 52.1 msec PA max P.7 mmHgTR max P.3 mmHg Left Ventricle The left ventricle is normal in size. There is normal left ventricular wall thickness. LV EF is 65%. The left ventricular ejection fraction is within normal limits. Doppler measurements suggest impaired left ventricular relaxation, which is associated with grade I/IV or mild diastolic dysfunction. The left ventricular wall motion is normal. There is no thrombus. Right Ventricle The right ventricle is normal in size and function. Atria The right atrium is normal. The left atrial size is normal. Mitral Valve There is no evidence of mitral valve prolapse. There is no vegetation seen on the mitral valve. There is no mitral valve stenosis. There is a trace amount of mitral regurgitation. Aortic Valve There is no aortic valvular vegetation. There is no aortic valve stenosis. There is no LVOT obstruction. No aortic regurgitation is present. Tricuspid Valve There is no tricuspid stenosis. There is a trace amount of tricuspid regurgitation. There is mild pulmonary hypertension by echo. RVSP is 34 mm of Hg with RA mean of 10. Pulmonic Valve There is no pulmonic valvular stenosis. There is no pulmonic valvular regurgitation. Great Vessels The aortic root is normal size. The inferior vena cava was not visualized. Effusions There is no pericardial effusion. Cannot assess ASD,VSD or PFO . : SREE PECK > Amara Multani
[2018-05-15] MEDS ORDERED: INSULIN GLARGINE,HUM.REC.ANLOG 1,000 UNIT/10 ML VIAL (PYX) SUBCUT ONE (21:55)
[2018-05-15] MEDS: INSULIN GLARGINE,HUM.REC.ANLOG 1,000 UNIT/10 ML VIAL SUBCUT SCH (22:23)
[2018-05-15] MEDS: ATORVASTATIN CALCIUM 40 MG TABLET PO SCH (22:24)
[2018-05-16] MEDS: NITROGLYCERIN 2% OINTMENT 1 GM PACKET TP SCH ×2 (00:08→06:15)
[2018-05-16] MEDS: PANTOPRAZOLE SODIUM 20 MG TABLET.DR PO SCH (06:13)
[2018-05-16] MEDS: INSULIN LISPRO 100 UNIT/ML 3 ML VIAL SUBCUT SCH ×4 (07:51→21:43)
[2018-05-16] MEDS ORDERED: (PENDING PHARMACY ID) (Losartan/Hydrochlorothiazide [Hyzaar 100-25 Tablet] 1 TAB) PO SCH (10:00)
[2018-05-16] MEDS: ASPIRIN 81 MG TABLET, CHEWABLE PO SCH (10:44)
[2018-05-16] MEDS: METOPROLOL TARTRATE 100 MG TABLET PO SCH ×2 (10:44→17:59)
[2018-05-16] MEDS: HYDROCHLOROTHIAZIDE 25 MG TABLET PO SCH ×2 (10:45→10:54)
[2018-05-16] MEDS: LOSARTAN POTASSIUM 50 MG TABLET PO SCH (10:45)
--- NOTE | 2018-05-16 10:50 | PDOC PROGRESS REPORT ---
Subjective Progress Note for:: 05/16/18 Subjective:: MADELIN HERNANDEZ is a 68 year old female with a past medical history of morbid obesity, diabetes and hypertension. She presents the emergency room with nausea and vomiting of gastric content, after a meal followed by dizziness she is brought to the emergency room for evaluation chest tightness. She is found to have hypertensive urgency in the 200 systolic range and she is placed on IV nitroglycerin and morphine. She is pain-free, workup is otherwise unremarkable and she is referred to the hospitalist for admission. Patient is clearly under the influence of morphine and unable to provide significant history regarding home medication regiment. She denies recent Accu-Cheks or blood pressure monitoring. 05/15/2018. No acute events overnight. Patient is chest pain-free and is stating that yesterday when she was feeling dizzy she felt left-sided chest tigh tness that she had never felt before. Denies any cardiac disease however mentions that 2 years ago she had a stress test which was negative. Denies any fever, chills, nausea, vomiting, diarrhea, constipation or any urinary symptoms. 05/16/2018. No acute events overnight. Has not had any recurrence of her chest pain. Patient alert oriented x3 cooperative with physical examination. Was able to ambulate without any assistance. She is p.o. tolerant and having normal bowel and bladder function. Patient had a 2D echo yesterday which showed an ejection fraction of within normal limits. She is pending a stress test. She denies any fever, chills, nausea, vomiting, diarrhea constipation or any urinary symptoms. Reason For Visit: CHEST PAIN HTN URGENCY, NAUSEA Physical Exam Vital Signs: Temp Pulse Resp BP Pulse Ox 97.5 F 72 16 148/78 H 100 05/16/18 08:11 05/16/18 08:11 05/16/18 08:11 05/16/18 08:11 05/16/18 08:11 Intake & Output 05/15/18 05/16/18 05/17/18 06:59 06:59 06:59 Intake Total 872 Balance 872 Weight 115.7 kg 116.7 kg General appearance: PRESENT: obese Head exam: PRESENT: atraumatic, normocephalic Respiratory exam: PRESENT: clear to auscultation rocio. ABSENT: rales, rhonchi, wheezes Cardiovascular exam: PRESENT: RRR. ABSENT: diastolic murmur, rubs, systolic murmur GI/Abdominal exam: PRESENT: normal bowel sounds, soft. ABSENT: distended, guarding, mass, organolmegaly, rebound, tenderness Extremities exam: PRESENT: full ROM. ABSENT: calf tenderness, clubbing, pedal edema Neurological exam: PRESENT: alert, awake, oriented to person, oriented to place, oriented to time, oriented to situation, CN II-XII grossly intact. ABSENT: motor sensory deficit Results Laboratory Results: 05/14/18 13:36 05/14/18 13:36 05/15/18 07:53 Triglycerides 86 Cholesterol 195.40 LDL Cholesterol Direct 128 H VLDL Cholesterol 17.0 HDL Cholesterol 45 05/14/18 05/14/18 05/14/18 13:36 13:36 19:15 Creatine Kinase 98 CK-MB (CK-2) 0.35 Troponin I < 0.012 < 0.012 05/15/18 05/15/18 05/15/18 01:41 07:53 14:35 Creatine Kinase CK-MB (CK-2) Troponin I < 0.012 < 0.012 < 0.012 Impressions: Chest X-Ray 05/14/18 15:00 IMPRESSION: NO ACUTE RADIOGRAPHIC FINDING IN THE CHEST. Head CT 05/14/18 15:03 IMPRESSION: No acute intracranial pathology. EVIDENCE OF ACUTE STROKE: NO. Abdomen/Pelvis CT 05/14/18 20:51 IMPRESSION: No acute abdominal or pelvic pathology. Assessment and Plan - Diagnosis (1) Hypertensive urgency Is this a current diagnosis for this admission?: Yes Plan: Likely due to noncompliance. Better controlled not optimized. Continue hydrochlorothiazide, ARB, beta blockers, hydralazine as needed. Follow-up with PCP. (2) Chest pain Qualifiers: Chest pain type: other chest pain Qualified Code(s): R07.89 - Other chest pain; R07.8 - Other chest pain Is this a current diagnosis for this admission?: Yes Plan: Resolved. Troponins negative x3. EKG no ischemic changes. Likely noncardiac however patient is high risk due to underlying comorbidities. HEART Score 4. 05/15/2018. 2D echo. Left ventricular ejection fraction 65%. Grade 1/4 mild diastolic dysfunction. Continue antiplatelets, statins, beta-blockers, OMAIRA. (3) Diabetes Qualifiers: Diabetes mellitus type: type 2 Is this a current diagnosis for this admission?: No Plan: Not controlled. A1c 9.6%. Cardiac diet, long acting insulin, pre-meal short-acting insulin, sliding scale insulin, history of needed. Restart home meds on discharge follow-up with PCP. (4) Morbid obesity with BMI of 40.0-44.9, adult Is this a current diagnosis for this admission?: No Plan: Diet and lifestyle modification.
[2018-05-16] MEDS: ATORVASTATIN CALCIUM 40 MG TABLET PO SCH (22:05)
[2018-05-16] MEDS: INSULIN GLARGINE,HUM.REC.ANLOG 1,000 UNIT/10 ML VIAL SUBCUT SCH (22:06)
[2018-05-17] MEDS ORDERED: GUAIFENESIN SYRP 200 MG/10 ML UDC PO ONE (00:45)
[2018-05-17 05:20] LABS: ALANINE AMINOTRANSFERASE 25 U/L (9-52); ALBUMIN 3.9 g/dL (3.5-5.0); ALKALINE PHOSPHATASE 113 U/L (38-126); ANION GAP 7 (5-19); ASPARTATE AMINO TRANSFERASE 44 U/L (14-36); BILIRUBIN,DIRECT 0.3 mg/dL (0.0-0.4); BILIRUBIN,TOTAL 0.6 mg/dL (0.2-1.3); BLOOD UREA NITROGEN 15 mg/dL (7-20); CALCIUM 9.8 mg/dL (8.4-10.2); CARBON DIOXIDE 27 mmol/L (22-30); CHLORIDE 101 mmol/L (98-107); GLUCOSE 142 mg/dL (75-110); POTASSIUM 3.9 mmol/L (3.6-5.0); SODIUM 135.1 mmol/L (137-145); TOTAL PROTEIN 7.2 g/dL (6.3-8.2)
[2018-05-17] MEDS: PANTOPRAZOLE SODIUM 20 MG TABLET.DR PO SCH (06:50)
[2018-05-17] MEDS: INSULIN LISPRO 100 UNIT/ML 3 ML VIAL SUBCUT SCH ×4 (09:02→21:36)
[2018-05-17] MEDS: HYDROCHLOROTHIAZIDE 25 MG TABLET PO SCH (09:08)
[2018-05-17] MEDS: ASPIRIN 81 MG TABLET, CHEWABLE PO SCH (09:08)
[2018-05-17] MEDS: LOSARTAN POTASSIUM 50 MG TABLET PO SCH (09:08)
[2018-05-17] MEDS: METOPROLOL TARTRATE 100 MG TABLET PO SCH ×2 (09:21→17:01)
[2018-05-17] MEDS ORDERED: BISACODYL 5 MG TABEC PO ONE (09:50)
--- NOTE | 2018-05-17 09:50 | PDOC PROGRESS REPORT ---
Subjective Progress Note for:: 05/17/18 Subjective:: MADELIN HERNANDEZ is a 68 year old female with a past medical history of morbid obesity, diabetes and hypertension. She presents the emergency room with nausea and vomiting of gastric content, after a meal followed by dizziness she is brought to the emergency room for evaluation chest tightness. She is found to have hypertensive urgency in the 200 systolic range and she is placed on IV nitroglycerin and morphine. She is pain-free, workup is otherwise unremarkable and she is referred to the hospitalist for admission. Patient is clearly under the influence of morphine and unable to provide significant history regarding home medication regiment. She denies recent Accu-Cheks or blood pressure monitoring. 05/15/2018. No acute events overnight. Patient is chest pain-free and is stating that yesterday when she was feeling dizzy she felt left-sided chest tigh tness that she had never felt before. Denies any cardiac disease however mentions that 2 years ago she had a stress test which was negative. Denies any fever, chills, nausea, vomiting, diarrhea, constipation or any urinary symptoms. 05/16/2018. No acute events overnight. Has not had any recurrence of her chest pain. Patient alert oriented x3 cooperative with physical examination. Was able to ambulate without any assistance. She is p.o. tolerant and having normal bowel and bladder function. Patient had a 2D echo yesterday which showed an ejection fraction of within normal limits. She is pending a stress test. She denies any fever, chills, nausea, vomiting, diarrhea constipation or any urinary symptoms. 05/17/2018. No acute events overnight. No recurrence of chest pain. Patient is ambulating to the restroom without any customer support assistant denying any chest pain, shortness of breath, chills, nausea, vomiting, diarrhea, or any urinary symptoms. Not had a problem for the last 2 days but denies any abdominal pain. Passing flatus. She is pending a nuclear stress test scheduled for tomorrow. If negative patient can be discharged to follow-up with PCP. Reason For Visit: CHEST PAIN HTN URGENCY, NAUSEA Physical Exam Vital Signs: Temp Pulse Resp BP Pulse Ox 98.0 F 72 16 135/68 H 96 05/17/18 07:50 05/17/18 07:50 05/17/18 07:50 05/17/18 07:50 05/17/18 07:50 Intake & Output 05/16/18 05/17/18 05/18/18 06:59 06:59 06:59 Intake Total 872 829 Balance 872 829 Weight 116.7 kg 118 kg General appearance: PRESENT: no acute distress, well-developed, well-nourished Head exam: PRESENT: atraumatic, normocephalic Respiratory exam: PRESENT: clear to auscultation rocio. ABSENT: rales, rhonchi, wheezes Cardiovascular exam: PRESENT: RRR. ABSENT: diastolic murmur, rubs, systolic murmur GI/Abdominal exam: PRESENT: normal bowel sounds, soft. ABSENT: distended, guarding, mass, organolmegaly, rebound, tenderness Rectal exam: PRESENT: deferred Neurological exam: PRESENT: alert, awake, oriented to person, oriented to place, oriented to time, oriented to situation, CN II-XII grossly intact. ABSENT: motor sensory deficit Results Laboratory Results: 05/14/18 13:36 05/17/18 04:06 05/17/18 04:06 Sodium 135.1 L Potassium 3.9 Chloride 101 Carbon Dioxide 27 Anion Gap 7 BUN 15 Creatinine 0.66 Est GFR ( Amer) > 60 Est GFR (Non-Af Amer) > 60 Glucose 142 H Calcium 9.8 Total Bilirubin 0.6 AST 44 H ALT 25 Alkaline Phosphatase 113 Total Protein 7.2 Albumin 3.9 05/14/18 05/14/18 05/14/18 13:36 13:36 19:15 Creatine Kinase 98 CK-MB (CK-2) 0.35 Troponin I < 0.012 < 0.012 05/15/18 05/15/18 05/15/18 01:41 07:53 14:35 Creatine Kinase CK-MB (CK-2) Troponin I < 0.012 < 0.012 < 0.012 Impressions: Chest X-Ray 05/14/18 15:00 IMPRESSION: NO ACUTE RADIOGRAPHIC FINDING IN THE CHEST. Head CT 05/14/18 15:03 IMPRESSION: No acute intracranial pathology. EVIDENCE OF ACUTE STROKE: NO. Abdomen/Pelvis CT 05/14/18 20:51 IMPRESSION: No acute abdominal or pelvic pathology. Assessment and Plan - Diagnosis (1) Hypertensive urgency Is this a current diagnosis for this admission?: Yes Plan: Likely due to noncompliance. Controlled. Continue hydrochlorothiazide, ARB, beta blockers, hydralazine as needed. Follow-up with PCP. (2) Chest pain Qualifiers: Chest pain type: other chest pain Qualified Code(s): R07.89 - Other chest pain; R07.8 - Other chest pain Is this a current diagnosis for this admission?: Yes Plan: Resolved. Troponins negative x3. EKG no ischemic changes. Likely noncardiac however patient is high risk due to underlying comorbidities. HEART Score 4. 05/15/2018. 2D echo. Left ventricular ejection fraction 65%. Grade 1/4 mild diastolic dysfunction. Continue antiplatelets, statins, beta-blockers, OMAIRA. Pending nuclear stress test. Scheduled for tomorrow. N.p.o. after midnight. (3) Diabetes Qualifiers: Diabetes mellitus type: type 2 Is this a current diagnosis for this admission?: No Plan: Not controlled. A1c 9.6%. Cardiac diet, long acting insulin, pre-meal short-acting insulin, sliding scale insulin, history of needed. Restart home meds on discharge follow-up with PCP. (4) Morbid obesity with BMI of 40.0-44.9, adult Is this a current diagnosis for this admission?: No Plan: Diet and lifestyle modification.
[2018-05-17] MEDS: DOCUSATE SODIUM 100 MG CAPSULE PO SCH (10:33)
[2018-05-17] MEDS: GUAIFENESIN SYRP 200 MG/10 ML UDC PO PRN ×2 (10:33→20:38)
[2018-05-17] MEDS: ATORVASTATIN CALCIUM 40 MG TABLET PO SCH (21:29)
[2018-05-17] MEDS: INSULIN GLARGINE,HUM.REC.ANLOG 1,000 UNIT/10 ML VIAL SUBCUT SCH (21:29)
[2018-05-18 05:41] LABS: ALANINE AMINOTRANSFERASE 37 U/L (9-52); ALBUMIN 3.8 g/dL (3.5-5.0); ALKALINE PHOSPHATASE 118 U/L (38-126); ANION GAP 10 (5-19); ASPARTATE AMINO TRANSFERASE 24 U/L (14-36); BILIRUBIN,DIRECT 0.3 mg/dL (0.0-0.4); BILIRUBIN,TOTAL 0.5 mg/dL (0.2-1.3); BLOOD UREA NITROGEN 18 mg/dL (7-20); CALCIUM 10.2 mg/dL (8.4-10.2); CARBON DIOXIDE 25 mmol/L (22-30); CHLORIDE 100 mmol/L (98-107); GLUCOSE 152 mg/dL (75-110); POTASSIUM 4.1 mmol/L (3.6-5.0); SODIUM 134.8 mmol/L (137-145)
[2018-05-18] MEDS: PANTOPRAZOLE SODIUM 20 MG TABLET.DR PO SCH (05:44)
[2018-05-18] MEDS: HYDROCHLOROTHIAZIDE 25 MG TABLET PO SCH (12:31)
[2018-05-18] MEDS: ASPIRIN 81 MG TABLET, CHEWABLE PO SCH (12:32)
[2018-05-18] MEDS: LOSARTAN POTASSIUM 50 MG TABLET PO SCH (12:32)
[2018-05-18] MEDS: METOPROLOL TARTRATE 100 MG TABLET PO SCH (12:33)
[2018-05-18] MEDS: INSULIN LISPRO 100 UNIT/ML 3 ML VIAL SUBCUT SCH ×2 (12:33→12:41)
[2018-05-18] MEDS: DOCUSATE SODIUM 100 MG CAPSULE PO SCH (12:35)
[2018-05-18] MEDS ORDERED: REGADENOSON INJ 0.4 MG/5 ML DISP.SYRIN IV ONE (13:43)
--- NOTE | 2018-05-18 15:25 | PDOC DISCHARGE SUMMARY ---
General - Admit/Disc Date/PCP Admission Date/Primary Care Provider: 05/14/18 22:57 ALINA PHILLIPS MD Discharge Date: 05/18/18 - Discharge Diagnosis (1) Hypertensive emergency Is this a current diagnosis for this admission?: Yes Summary: Blood pressure was 210/96 when she came in one point required a nitroglycerin drip. Blood pressure now controlled with metoprolol and losartan. (2) Chest pain Is this a current diagnosis for this admission?: Yes Summary: Resolved. Stress test was negative. (3) Diabetes Is this a current diagnosis for this admission?: Yes Summary: Controlled with her home medication (4) Morbid obesity with BMI of 40.0-44.9, adult Is this a current diagnosis for this admission?: Yes Summary: Encouraged lifestyle modification - Additional Information Resuscitation Status: Full Code Discharge Diet: Cardiac, Diabetic Discharge Activity: Activity As Tolerated Home Medications: Glipizide [Glipizide Xl] 10 mg PO DAILY 05/15/18 Ibuprofen [Advil] 200 mg PO Q6HP PRN 05/15/18 Losartan/Hydrochlorothiazide [Hyzaar 100-25 Tablet] 1 tab PO DAILY 05/15/18 Metformin HCl [Glucophage 500 mg Tablet] 500 mg PO BID 05/15/18 Metoprolol Tartrate [Lopressor 100 mg Tablet] 100 mg PO BID 05/15/18 Omeprazole 20 mg PO DAILY 05/15/18 Oxycodone HCl/Acetaminophen [Percocet 5-325 mg Tablet] 1 tab PO Q8HP PRN 05/15/18 Aspirin [Aspirin 81 mg Chewable Tablet] 81 mg PO DAILY tab.chew 05/18/18 History of Present Illness History of Present Illness: MADELIN HERNANDEZ is a 68 year old female with a past medical history of morbid obesity, diabetes and hypertension. She presents the emergency room with nausea and vomiting of gastric content, after a meal followed by dizziness she is brought to the emergency room for evaluation chest tightness. She is found to have hypertensive urgency in the 200 systolic range and she is placed on IV nitroglycerin and morphine. She is pain-free, workup is otherwise unremarkable and she is referred to the hospitalist for admission. Patient is clearly under the influence of morphine and unable to provide significant history regarding home medication regiment. She denies recent Accu-Cheks or blood pressure monitoring. Hospital Course Hospital Course: Blood pressure improved and she was able to be controlled on home medications. Chest pain resolved. Stress test was ordered and was negative. It was recommended that she continue her home medications in addition to an aspirin. We talked about a statin medication but she wants to try to get her LDL down with diet and blood sugar control. Her labs and examination were reassuring and she was discharged in good condition. Physical Exam Vital Signs: Temp Pulse Resp BP Pulse Ox 98.1 F 71 16 152/86 H 100 05/18/18 11:53 05/18/18 14:00 05/18/18 11:53 05/18/18 11:53 05/18/18 11:53 Intake & Output 05/17/18 05/18/18 05/19/18 06:59 06:59 06:59 Intake Total 829 1422 Balance 829 1422 Weight 118 kg 115.1 kg General appearance: PRESENT: no acute distress, well-developed, well-nourished Head exam: PRESENT: atraumatic, normocephalic Respiratory exam: PRESENT: clear to auscultation rocio. ABSENT: rales, rhonchi, wheezes Cardiovascular exam: PRESENT: RRR. ABSENT: diastolic murmur, rubs, systolic murmur GI/Abdominal exam: PRESENT: normal bowel sounds, soft. ABSENT: distended, guarding, mass, organolmegaly, rebound, tenderness Neurological exam: PRESENT: alert, awake, oriented to person, oriented to place, oriented to time, oriented to situation Results Laboratory Results: 05/14/18 13:36 05/18/18 04:40 05/18/18 04:40 Sodium 134.8 L Potassium 4.1 Chloride 100 Carbon Dioxide 25 Anion Gap 10 BUN 18 Creatinine 0.64 Est GFR ( Amer) > 60 Est GFR (Non-Af Amer) > 60 Glucose 152 H Calcium 10.2 Total Bilirubin 0.5 AST 24 ALT 37 Alkaline Phosphatase 118 Total Protein 7.0 Albumin 3.8 05/14/18 05/14/18 05/14/18 13:36 13:36 19:15 Creatine Kinase 98 CK-MB (CK-2) 0.35 Troponin I < 0.012 < 0.012 05/15/18 05/15/18 05/15/18 01:41 07:53 14:35 Creatine Kinase CK-MB (CK-2) Troponin I < 0.012 < 0.012 < 0.012 Impressions: Chest X-Ray 05/14/18 15:00 IMPRESSION: NO ACUTE RADIOGRAPHIC FINDING IN THE CHEST. Head CT 05/14/18 15:03 IMPRESSION: No acute intracranial pathology. EVIDENCE OF ACUTE STROKE: NO. Abdomen/Pelvis CT 05/14/18 20:51 IMPRESSION: No acute abdominal or pelvic pathology. Qualifiers - * PATIENT BEING DISCHARGED WITH ANY OF THE FOLLOWING DIAGNOSIS: No
[2018-05-18 18:22] VITALS: BP 108/71
--- NOTE | 2018-05-24 19:45 | DRAGON STRESS TEST REPORT ---
Intravenous Lexiscan Cardiolite stress test using single photon emmision computerized tomography. Date of procedure: 05/18/2018. Ordering Provider: Dr. Tamir Osorio. Patient's status: In Patient. Indication: Chest pain. Coronary risk factors: Age, diabetes mellitus, hypertension, and dyslipidemia. Resting EKG: Sinus Rhythm. Nonspecific T changes anterior leads. Stress EKG: No changes of ischemia. The patient had no chest pain or discomfort and there was no arrhythmias seen Reason for termination: Protocol. Conclusions: Normal EKG and hemodynamic response to IV Lexiscan. Nuclear data: At rest the patient was given 15.79 millicuries of technetium 99m sestamibi injected intravenously. As per protocol rest non gated SPECT images were obtained. Subsequently the patient was given intravenous Lexiscan at a dose of 0.4 mg in 5 mL intravenously, followed by flush with normal saline. Subsequently the stress dose of 46.4 millicuries of technetium 99m sestamibi was injected intravenously. As per protocol stress gated images were obtained. Nuclear interpretation: Review of images showed that all segments of the myocardium had normal perfusion at rest, and normal perfusion post stress with IV Lexiscan. All segments of the myocardium had normal motion, contraction, and thickening by gated study. T. I D. ratio was read as abnormal, by the computer, at 1.36. This is not reliable, and visually that TID ratio is normal. There is no transient ischemic dilatation of the left ventricle. Computer read rest, and stress left ventricular ejection fraction were 70 %, and 62 %, respectively. Conclusion: 1. There is no scintigraphic evidence of Lexiscan induced myocardial ischemia. 2. There is no scintigraphic evidence of myocardial infarction/scar. Recommendations: Aggressive risk factor modification, and treating the underlying co- morbidities. MTDD
== END 2018-05-18 19:18 | disposition home or self-care (01) ==
LOC: ER 13:54 → EH 22:57 → 3W 05-15 01:03
PROVIDERS: ADMIT Internal Medicine; ATTEND Internal Medicine
DX: I16.1 Hypertensive emergency (principal); R07.89 Other chest pain; E11.65 Type 2 diabetes mellitus with hyperglycemia; E66.01 Morbid (severe) obesity due to excess calories; R11.2 Nausea with vomiting, unspecified; R10.30 Lower abdominal pain, unspecified; R94.31 Abnormal electrocardiogram [ECG] [EKG]; I44.0 Atrioventricular block, first degree; I51.89 Other ill-defined heart diseases; K21.9 Gastro-esophageal reflux disease without esophagitis; Z68.41 Body mass index [BMI] 40.0-44.9, adult; Z79.899 Other long term (current) drug therapy; Z79.82 Long term (current) use of aspirin; Z79.84 Long term (current) use of oral hypoglycemic drugs; Z87.891 Personal history of nicotine dependence; Z98.51 Tubal ligation status; Z90.710 Acquired absence of both cervix and uterus; Z82.49 Family history of ischemic heart disease and other diseases of the circulatory system
CPT/HCPCS: 93005; 96376; 99285; 96374; 96375; 36415 ×4; 82553; 82962 ×4; 82550; 84443; 85025; 80053 ×3; 81001; 84484 ×2; 83036; 80061; 87804; 93306; 93017; 71045; 78452; 70450; 74176; 93010; A9500; J2785; A9270 ×26; J0360; J2270; J3490 ×9; J2405; Q9969; G0378; J1815

== ENCOUNTER 2018-11-19 04:47 | Emergency (ER) | payer MEDICARE, MEDICAID ==
[2018-11-19 05:52] LABS: ABSOLUTE BASOPHILS # (AUTO) 0.1 10^3/uL (0.0-0.2); ABSOLUTE EOSINOPHILS # (AUTO) 0.1 10^3/uL (0.0-0.6); ABSOLUTE MONOCYTES (AUTO) 0.4 10^3/uL (0.1-1.4); ABSOLUTE NEUT (AUTO) 3.5 10^3/uL (1.7-8.2); EOSINOPHILS % (AUTO) 1.9 % (0-6); HEMATOCRIT 40.4 % (36.0-47.0); HEMOGLOBIN 13.4 g/dL (12.0-15.5); LYMPHOCYTES % (AUTO) 32.7 % (13-45); MEAN CORPUSCULAR HEMOGLOBIN 29.6 pg (27.0-33.4); MEAN CORPUSCULAR HGB CONC 33.2 g/dL (32.0-36.0); MEAN CORPUSCULAR VOLUME 89 fl (80-97); PLATELET COUNT 241 10^3/uL (150-450); RED BLOOD COUNT 4.52 10^6/uL (3.72-5.28); RED CELL DISTRIBUTION WIDTH 14.5 % (11.5-14.0); SEGMENTED NEUTROPHILS % (AUTO) 58.4 % (42-78); TOTAL CELLS COUNTED % (AUTO) 100 %; WHITE BLOOD COUNT 6.1 10^3/uL (4.0-10.5)
[2018-11-19 06:23] LABS: ALBUMIN 3.9 g/dL (3.5-5.0); ALKALINE PHOSPHATASE 97 U/L (38-126); ANION GAP 10 (5-19); ASPARTATE AMINO TRANSFERASE 23 U/L (14-36); BILIRUBIN,DIRECT 0.1 mg/dL (0.0-0.4); BILIRUBIN,TOTAL 0.4 mg/dL (0.2-1.3); BLOOD UREA NITROGEN 14 mg/dL (7-20); CALCIUM 9.9 mg/dL (8.4-10.2); CARBON DIOXIDE 25 mmol/L (22-30); CHLORIDE 101 mmol/L (98-107); GLUCOSE 142 mg/dL (75-110); POTASSIUM 4.2 mmol/L (3.6-5.0); TOTAL PROTEIN 6.9 g/dL (6.3-8.2)
[2018-11-19] MEDS ORDERED: ONDANSETRON HCL INJ/PF 4 MG/2 ML SDV IV ONE (06:45)
--- NOTE | 2018-11-19 07:44 | RADIOLOGY REPORT (SQ) ---
EXAM: CT head without IV contrast CLINICAL DATA: 68-year-old female with headache and vertigo TECHNICAL DATA: Multiple axial CT images of the brain were performed followed by sagittal and coronal reconstructed images. The CT study is performed according to ALARA (as low as reasonably achievable) or ALARA/IMAGE GENTLY, with automatic adjustment of mA and/or kV according to patient size. Performed on: 11/19/2018 at 6:56 AM Comparisons: 05/14/2018. FINDINGS: There is no evidence of mass, acute mass effect or midline shift. There are no acute extra-axial fluid collections. There is no evidence of acute intracranial hemorrhage. The cerebral sulci and ventricles are normal in size and configuration. There are scattered areas of decreased attenuation within the subcortical and periventricular white matter most likely due to mild chronic microangiopathy. There is no significant mucosal thickening of the paranasal sinuses. The mastoid air cells are clear. The orbital contents are grossly unremarkable. No acute osseous abnormalities are identified. No focal soft tissue abnormalities are identified. IMPRESSION: 1. There is no evidence of acute intracranial pathology. 2. Mild chronic microangiopathy. 3. No significant change when compared to the prior study.
[2018-11-19 07:53] LABS: APPEARANCE,URINE SLIGHTLY-CLOUDY; BILIRUBIN,URINE NEGATIVE (NEGATIVE); COLOR,URINE YELLOW; GLUCOSE, URINE >=500 mg/dL (NEGATIVE); KETONES,URINE TRACE mg/dL (NEGATIVE); LEUKOCYTE ESTERASE,URINE NEGATIVE (NEGATIVE); NITRITE,URINE NEGATIVE (NEGATIVE); PROTEIN,URINE NEGATIVE (NEGATIVE); URINE SPECIFIC GRAVITY 1.023; UROBILINOGEN,URINE NEGATIVE mg/dL (<2.0)
--- NOTE | 2018-11-19 08:24 | ER Document Report ---
ED General - General Chief Complaint: Nausea/Vomiting/Diarrhea Stated Complaint: DIZZINESS,NAUSEA,VOMITING,DIARRHEA Time Seen by Provider: 11/19/18 06:34 Primary Care Provider: GRANT GARCIA FNP-C [Primary Care Provider] - Follow up as needed TRAVEL OUTSIDE OF THE [place] IN LAST 30 DAYS: No - HPI Notes: 68-year-old female who presents with multiple complaints. Patient has a history of prior episodes of vertigo, states sometime overnight she began to have nausea, loose stools, vertigo. Woke up this way around 2 or 3 in the morning. She also has developed some moderate bifrontal headache. Incontinent on herself x1. This was when she was trying to get into the bathroom. No numbness or tingling. No other modifying factors, no other associated symptoms, no other provocative or palliative factors. She later did complain of mild mid abdominal and epigastric pain, cramping. Nonradiating. - Related Data Allergies/Adverse Reactions: hydrocodone [Hydrocodone] Allergy (Severe, Verified 05/14/18 14:24) Hives naproxen sodium [From Aleve] Allergy (Severe, Verified 05/14/18 14:24) tremors pregabalin [From Lyrica] Allergy (Severe, Verified 05/14/18 14:24) Hallucinations strawberry [[place]] Allergy (Severe, Verified 05/14/18 14:24) Hives egg Allergy (Verified 05/15/18 10:25) Nausea Past Medical History - Social History Smoking Status: Unknown if Ever Smoked Family History: DM, Hypertension Patient has suicidal ideation: No Patient has homicidal ideation: No - Medical History Notes: Includes prior episodes of vertigo - Past Medical History Cardiac Medical History: Reports: Hx Hypertension Denies: Hx Coronary Artery Disease, Hx Heart Attack Pulmonary Medical History: Reports: Hx Asthma - as child-not currently, Hx Bronchitis, Hx Pneumonia Denies: Hx COPD Neurological Medical History: Reports: Hx Migraine. Denies: Hx Cerebrovascular Accident, Hx Seizures Endocrine Medical History: Reports: Hx Diabetes Mellitus Type 2 - diet control Renal/ Medical History: Denies: Hx Peritoneal Dialysis GI Medical History: Reports: Hx Gastroesophageal Reflux Disease, Hx Hiatal Hernia, Hx Colonoscopy, Hx Endoscopy Musculoskeletal Medical History: Reports Hx Arthritis - fibromyalgia, Reports Hx Fibromyalgia Traumatic Medical History: Reports: Hx Fractures - Arm leg ankle Past Surgical History: Reports: Hx Hysterectomy, Hx Oral Surgery - Dental surgery, Hx Tubal Ligation - Immunizations Hx Diphtheria, Pertussis, Tetanus Vaccination: Yes Hx Pneumococcal Vaccination: 11/26/12 Review of Systems - Review of Systems Notes: Review of systems as in the history of present illness, otherwise negative x 10 systems. Physical Exam - Vital signs Vitals: Pulse Ox 99 11/19/18 04:56 - Notes Notes: General: Well developed . HEENT: Normocephalic, atraumatic. Pupils equal round reactive to light. No JVD. Chest: No trauma. Respiratory: Good air exchange, normal excursion. Cardiac: Regular rhythm. No murmurs or gallops. Abdomen: Soft, benign. Nondistended. Nontender. Back: No asymmetry or gross abnormality. Motor: Grossly normal power and tone. Neurologic: Alert, nonfocal. Cranial nerves II-12 are intact. Sensation intact. Vascular: Well perfused. Normal peripheral pulses. No pass pointing, no cerebellar findings. No nystagmus. Skin: No petechiae or purpura. Course - Re-evaluation Re-evalutation: 11/19/18 08:24 Elderly female the after mentioned symptoms. Likely benign vertigo, consider underlying viral illness as well. With associated abdominal pain, will proceed with broad laboratory evaluation to exclude underlying biliary tract disease, pancreatitis or other intra-abdominal etiology. Given that she has some headache associated with this, and also in consideration of her age, proceed with CT imaging to exclude bleed. Will treat with antiemetics, fluids, reevaluate. 11/19/18 09:06 Labs reviewed, CBC chemistries LFTs lipase unremarkable. CT imaging the brain shows no acute lesion or abnormality. Patient had serial exams, has benign exam, meclizine has helped her vertigo. Continues have a stable neurologic exam with no findings that suggest central cause of vertigo. This time, will discharge home, prescription for meclizine given, outpatient follow-up. - Vital Signs Vital signs: Temp Pulse Resp BP Pulse Ox 98.2 F 18 154/94 H 98 11/19/18 05:06 11/19/18 06:31 11/19/18 06:31 11/19/18 06:31 - Laboratory Result Diagrams: 11/19/18 05:42 11/19/18 05:42 Laboratory results interpreted by me: 11/19/18 11/19/18 11/19/18 05:42 05:42 07:35 RDW 14.5 H Sodium 136.1 L Glucose 142 H Urine Glucose (UA) >=500 H Urine Ketones TRACE H Discharge - Discharge Clinical Impression: Vertigo Abdominal pain Qualifiers: Abdominal location: unspecified location Qualified Code(s): R10.9 - Unspecified abdominal pain Condition: Stable Disposition: HOME, SELF-CARE Instructions: Abdominal Pain ([facility]), Vomiting ([facility]), Vertigo ([facility]) Prescriptions: Meclizine HCl [Antivert 25 mg Tablet] 25 mg PO TID PRN #21 tablet PRN Reason: Referrals: GRANT GARCIA FNP-C [Primary Care Provider] - Follow up as needed
[2018-11-19] MEDS ORDERED: MECLIZINE HCL 25 MG TABLET PO ONE (08:44)
[2018-11-19 09:37] VITALS: BP 153/90
--- NOTE | 2018-11-19 21:50 | EKG REPORT ---
SEVERITY:- ABNORMAL ECG - SINUS RHYTHM ABNORMAL T, CONSIDER ISCHEMIA, DIFFUSE LEADS : Confirmed by: Amara Multani MD 19-Nov-2018 21:49:19
== END 2018-11-19 10:15 | disposition home or self-care (01) ==
LOC: ER 04:47
DX: R42 Dizziness and giddiness (principal); R10.9 Unspecified abdominal pain; R11.2 Nausea with vomiting, unspecified; R19.7 Diarrhea, unspecified; I10 Essential (primary) hypertension; Z88.6 Allergy status to analgesic agent; Z91.012 Allergy to eggs; Z98.51 Tubal ligation status
CPT/HCPCS: 93005; 99284; 96374; 36415; 87086; 83690; 85025; 87088; 80053; 81001; 87186; 70450; 93010; A9270; J2405

== ENCOUNTER 2019-04-25 21:04 | Emergency (ER) | payer MEDICARE, MEDICAID ==
--- NOTE | 2019-04-25 21:32 | EKG REPORT ---
SEVERITY:- ABNORMAL ECG - SINUS TACHYCARDIA PROBABLE INFERIOR INFARCT, AGE INDETERMINATE : Confirmed by: Chris Paniagua MD 25-Apr-2019 21:31:52
--- NOTE | 2019-04-25 22:08 | ER Document Report ---
ED Medical Screen (RME) - General Chief Complaint: Chest Pain Stated Complaint: CHEST PAINS Time Seen by Provider: 04/25/19 22:02 Primary Care Provider: GRANT GARCIA FNP-C [Primary Care Provider] - Follow up as needed TRAVEL OUTSIDE OF THE [place] IN LAST 30 DAYS: No - HPI Notes: 04/25/19 22:07 Patient is a 69-year-old female with a history of morbid obesity, diabetes and hypertension who presents complaining of having chest pain her midsternal area that is been present for the past couple days. Patient states that she will feel short of breath with activity as well. No fever, URI, cough, abdominal pain, vomiting/diarrhea. No history of DVT, PE, CAD. She is not on any blood thinning medications. I have treated and performed a rapid initial assessment of this patient. A comprehensive ED assessment and evaluation of the patient, analysis of test results and completion of medical decision making process will be conducted by additional ED providers. PHYSICAL EXAMINATION: GENERAL: Well-appearing, well-nourished and in no acute distress. A&Ox4. Answers questions appropriately. Heart: RRR Lungs: Grossly CTAB. Extremities: No edema - Related Data Allergies/Adverse Reactions: hydrocodone [Hydrocodone] Allergy (Severe, Verified 04/25/19 22:03) Hives naproxen sodium [From Aleve] Allergy (Severe, Verified 04/25/19 22:03) tremors pregabalin [From Lyrica] Allergy (Severe, Verified 04/25/19 22:03) Hallucinations strawberry [[place]] Allergy (Severe, Verified 04/25/19 22:03) Hives egg Allergy (Verified 04/25/19 22:03) Nausea Past Medical History - Past Medical History Cardiac Medical History: Reports: Hx Hypertension Denies: Hx Coronary Artery Disease, Hx Heart Attack Pulmonary Medical History: Reports: Hx Asthma - as child-not currently, Hx Bronchitis, Hx Pneumonia Denies: Hx COPD Neurological Medical History: Reports: Hx Migraine. Denies: Hx Cerebrovascular Accident, Hx Seizures Endocrine Medical History: Reports: Hx Diabetes Mellitus Type 2 - diet control Renal/ Medical History: Denies: Hx Peritoneal Dialysis GI Medical History: Reports: Hx Gastroesophageal Reflux Disease, Hx Hiatal Hernia, Hx Colonoscopy, Hx Endoscopy Musculoskeltal Medical History: Reports Hx Arthritis - fibromyalgia, Reports Hx Fibromyalgia Traumatic Medical History: Reports: Hx Fractures - Arm leg ankle Past Surgical History: Reports: Hx Hysterectomy, Hx Oral Surgery - Dental surgery, Hx Tubal Ligation - Immunizations Hx Diphtheria, Pertussis, Tetanus Vaccination: Yes Physical Exam - Vital signs Vitals: Temp Pulse Resp BP Pulse Ox 97.9 F 98 20 150/92 H 97 04/25/19 21:21 04/25/19 21:21 04/25/19 21:21 04/25/19 21:21 04/25/19 21:21 Course - Vital Signs Vital signs: Temp Pulse Resp BP Pulse Ox 97.9 F 98 20 150/92 H 97 04/25/19 21:21 04/25/19 21:21 04/25/19 21:21 04/25/19 21:21 04/25/19 21:21 Doctor's Discharge - Discharge Referrals: GRANT GARCIA FNP-C [Primary Care Provider] - Follow up as needed
[2019-04-25 22:27] LABS: ABSOLUTE BASOPHILS # (AUTO) 0.1 10^3/uL (0.0-0.2); ABSOLUTE EOSINOPHILS # (AUTO) 0.1 10^3/uL (0.0-0.6); ABSOLUTE LYMPHOCYTES (AUTO) 2.1 10^3/uL (0.5-4.7); ABSOLUTE MONOCYTES (AUTO) 0.4 10^3/uL (0.1-1.4); ABSOLUTE NEUT (AUTO) 3.2 10^3/uL (1.7-8.2); HEMATOCRIT 41.2 % (36.0-47.0); HEMOGLOBIN 13.6 g/dL (12.0-15.5); LYMPHOCYTES % (AUTO) 36.3 % (13-45); MEAN CORPUSCULAR HEMOGLOBIN 30.2 pg (27.0-33.4); MEAN CORPUSCULAR HGB CONC 32.9 g/dL (32.0-36.0); MEAN CORPUSCULAR VOLUME 92 fl (80-97); MONOCYTES % (AUTO) 6.5 % (3-13); PLATELET COUNT 259 10^3/uL (150-450); RED BLOOD COUNT 4.49 10^6/uL (3.72-5.28); SEGMENTED NEUTROPHILS % (AUTO) 54.2 % (42-78); TOTAL CELLS COUNTED % (AUTO) 100 %; WHITE BLOOD COUNT 5.9 10^3/uL (4.0-10.5)
[2019-04-25 23:05] LABS: ALBUMIN 4.3 g/dL (3.5-5.0); ALKALINE PHOSPHATASE 140 U/L (38-126); ANION GAP 13 (5-19); ASPARTATE AMINO TRANSFERASE 24 U/L (14-36); BILIRUBIN,TOTAL 0.2 mg/dL (0.2-1.3); BLOOD UREA NITROGEN 15 mg/dL (7-20); CALCIUM 9.6 mg/dL (8.4-10.2); CARBON DIOXIDE 21 mmol/L (22-30); CHLORIDE 101 mmol/L (98-107); POTASSIUM 4.3 mmol/L (3.6-5.0); TOTAL PROTEIN 7.2 g/dL (6.3-8.2)
[2019-04-25 23:14] LABS: GLUCOSE 439 mg/dL (75-110)
[2019-04-25 23:17] LABS: NT PRO BNP 53 pg/mL (<125)
[2019-04-25 23:18] LABS: TROPONIN I < 0.012 ng/mL
[2019-04-25] MEDS ORDERED: NORMAL SALINE 1000 ML 1,000 ML IV ONE (23:20)
--- NOTE | 2019-04-25 23:20 | RADIOLOGY REPORT (SQ) ---
EXAM DESCRIPTION: X-RAY CHEST TWO VIEWS CLINICAL HISTORY: 69 years Female CP COMPARISON: None TECHNIQUE: PA and lateral chest x-rays at 2310 hours on 04/25/2019. FINDINGS: EKG leads overlie the chest. The lungs are well expanded. No focal consolidation or pleural effusions. The heart is normal in size with normal pulmonary vascularity. The aorta is faintly calcified. No acute bony abnormalities are seen. IMPRESSION: No active cardiopulmonary lesions.
[2019-04-26 01:06] LABS: APPEARANCE,URINE CLEAR; BILIRUBIN,URINE NEGATIVE (NEGATIVE); COLOR,URINE YELLOW; GLUCOSE, URINE >=500 mg/dL (NEGATIVE); KETONES,URINE NEGATIVE (NEGATIVE); PROTEIN,URINE NEGATIVE (NEGATIVE); URINE SPECIFIC GRAVITY 1.032; UROBILINOGEN,URINE NEGATIVE mg/dL (<2.0)
[2019-04-26] MEDS ORDERED: INSULIN REG, HUMAN 100 UNIT/ML 3 ML VIAL (PYX) SUBCUT ONE (01:21)
--- NOTE | 2019-04-26 01:23 | ER Document Report ---
ED General - General Chief Complaint: Chest Pain Stated Complaint: CHEST PAINS Time Seen by Provider: 04/25/19 22:02 Primary Care Provider: GRANT GARCIA FNP-C [Primary Care Provider] - Follow up as needed Notes: Patient is a 69-year-old female that comes emergency department with complaints of pain over the front of her chest for the past 2 days. She states this is intermittent, worse with cough and deep breaths, she has had an occasional cough and some mild chest congestion. She denies difficulty breathing, fevers, abdominal pain, vomiting, dizziness. She also states her blood sugar is probably very elevated, she states that she "got weak" and decided to make real lemonade and eat Oreo cookies. She is on metformin and Januvia for type 2 diabetes. She is also treated for blood pressure, she states she had a negative stress test less than 1 year ago and was cleared by cardiology. She has never had an DE or stents. She also has a history of obesity. She lives at home with her family. TRAVEL OUTSIDE OF THE [place] IN LAST 30 DAYS: No - Related Data Allergies/Adverse Reactions: hydrocodone [Hydrocodone] Allergy (Severe, Verified 04/25/19 22:03) Hives naproxen sodium [From Aleve] Allergy (Severe, Verified 04/25/19 22:03) tremors pregabalin [From Lyrica] Allergy (Severe, Verified 04/25/19 22:03) Hallucinations strawberry [[place]] Allergy (Severe, Verified 04/25/19 22:03) Hives egg Allergy (Verified 04/25/19 22:03) Nausea Past Medical History - General Information source: Patient - Social History Smoking Status: Former Smoker Frequency of alcohol use: None Drug Abuse: None Lives with: Family Family History: DM, Hypertension Patient has suicidal ideation: No Patient has homicidal ideation: No - Past Medical History Cardiac Medical History: Reports: Hx Hypertension Denies: Hx Coronary Artery Disease, Hx Heart Attack Pulmonary Medical History: Reports: Hx Asthma - as child-not currently, Hx Bronchitis, Hx Pneumonia Denies: Hx COPD Neurological Medical History: Reports: Hx Migraine. Denies: Hx Cerebrovascular Accident, Hx Seizures Endocrine Medical History: Reports: Hx Diabetes Mellitus Type 2 - diet control Renal/ Medical History: Denies: Hx Peritoneal Dialysis GI Medical History: Reports: Hx Gastroesophageal Reflux Disease, Hx Hiatal Hernia, Hx Colonoscopy, Hx Endoscopy Musculoskeletal Medical History: Reports Hx Arthritis - fibromyalgia, Reports Hx Fibromyalgia Traumatic Medical History: Reports: Hx Fractures - Arm leg ankle Past Surgical History: Reports: Hx Hysterectomy, Hx Oral Surgery - Dental surgery, Hx Tubal Ligation - Immunizations Hx Diphtheria, Pertussis, Tetanus Vaccination: Yes Hx Pneumococcal Vaccination: 11/26/12 Review of Systems - Review of Systems Constitutional: See HPI EENT: No symptoms reported Cardiovascular: See HPI Respiratory: See HPI Gastrointestinal: See HPI Genitourinary: No symptoms reported Female Genitourinary: No symptoms reported Musculoskeletal: No symptoms reported Skin: No symptoms reported Hematologic/Lymphatic: No symptoms reported Neurological/Psychological: No symptoms reported Physical Exam - Vital signs Vitals: Temp Pulse Resp BP Pulse Ox 97.9 F 98 20 150/92 H 97 04/25/19 21:21 04/25/19 21:21 04/25/19 21:21 04/25/19 21:21 04/25/19 21:21 - Notes Notes: GENERAL: Alert, interacts well. No acute distress. HEAD: Normocephalic, atraumatic. EYES: Pupils equal, round, and reactive to light. Extraocular movements intact. ENT: Oral mucosa moist, tongue midline. Oropharynx unremarkable. Airway patent. Nares patent, no nasal septal hematoma, TM's intact. NECK: Full range of motion. Supple. Trachea midline. LUNGS: Clear to auscultation bilaterally, no wheezes, rales, or rhonchi. No respiratory distress. Occasional painful cough, mild pain which is reproducible with palpation over the chest. No severe tenderness, erythema, induration, fluctuance, or rash HEART: Regular rate and rhythm. No murmur ABDOMEN: Soft, non-tender. Non-distended. EXTREMITIES: Moves all 4 extremities spontaneously. No edema, normal radial and dorsalis pedis pulses bilaterally. No cyanosis. BACK: no cervical, thoracic, lumbar midline tenderness. No saddle anesthesia, normal distal neurovascular exam. Moves all extremities in full range of motion. NEUROLOGICAL: Alert and oriented x3. Normal speech. Cranial nerves II through XII grossly intact. PSYCH: Laughing, talkative, well-appearing SKIN: Warm, dry, normal turgor. No rashes or lesions noted. Course - Re-evaluation Re-evalutation: On my evaluation patient is joking, laughing, well-appearing. She has an occasional cough, she has pain with cough, she also has some pain with palpation of the chest. She denies any pain otherwise. Abdomen is soft benign, no neurological deficits, unremarkable vital signs. Glucose is very elevated at 439, however patient is exquisitely telling me this is from her diet over the past 2 days. Bicarbonate is borderline, anion gap is normal, no ketones in the urine. Treated for dehydration, given insulin. Urine shows evidence of infection with positive nitrites. I discussed results with patient. Patient is requesting to leave. Her son is in support of this. I did request patient wait until we downtrend her glucose, and repeat her troponin, she did consent to this, on repeat evaluation she is again asking to leave. Based on her symptoms going on for the past couple of days, symptoms with cough and on palpation of the chest, this is very atypical. I did discuss potential admission because of her age and risk factors, however patient states she just wanted to be checked out and she is going to go home but she will follow-up with her provider. Overall presentation is not suggestive that this is cardiac. Work-up is negative. She states she will improve her t. She will be treated for UTI. She will continue her current medications. She will return if she worsens in any way. This was reviewed again with patient and son. They state understanding and agreement with plan. - Vital Signs Vital signs: Temp Pulse Resp BP Pulse Ox 98.1 F 98 17 150/72 H 97 04/26/19 02:57 04/25/19 21:21 04/26/19 02:40 04/26/19 02:40 04/26/19 02:40 - Laboratory Result Diagrams: 04/25/19 22:10 04/25/19 22:10 Laboratory results interpreted by me: 04/25/19 04/26/19 04/26/19 22:10 00:40 01:19 Sodium 134.7 L Carbon Dioxide 21 L Glucose 439 H* POC Glucose 330 H Alkaline Phosphatase 140 H Urine Glucose (UA) >=500 H Urine Nitrite (Reflex) POSITIVE H 04/26/19 02:24 Sodium Carbon Dioxide Glucose POC Glucose 297 H Alkaline Phosphatase Urine Glucose (UA) Urine Nitrite (Reflex) - EKG Interpretation by Me Additional EKG results interpreted by me: EKG shows sinus tachycardia at a rate of 104. Borderline Q waves in lead III, no T wave inversions or ST segment changes in consecutive leads, normal axis, QTC of 453. Discharge - Discharge Clinical Impression: Hyperglycemia, Dehydration, Chest wall pain Urinary tract infection Qualifiers: Urinary tract infection type: site unspecified Hematuria presence: without hematuria Qualified Code(s): N39.0 - Urinary tract infection, site not specified Condition: Stable Disposition: HOME, SELF-CARE Additional Instructions: Your work-up shows dehydration, very high blood sugar, and a urinary tract infection. Drink plenty fluids, take your medications for diabetes, avoid sugary foods, take the antibiotic as prescribed to completion. Your pain appears to be from your chest wall, you can apply heat to the area, take Tylenol for pain, this should go away with time. Follow closely with your primary care provider. Return if you worsen including fever, vomiting, difficulty breathing, severe worsening pain, or any other concerning symptoms. Prescriptions: Cephalexin Monohydrate [Keflex 500 mg Capsule] 500 mg PO BID 7 Days #14 capsule Referrals: GRANT GARCIA FNP-C [Primary Care Provider] - Follow up as needed
[2019-04-26] MEDS ORDERED: CEPHALEXIN 500 MG CAPSULE PO ONE (02:36)
[2019-04-26 02:57] VITALS: BP 150/72
== END 2019-04-26 02:58 | disposition home or self-care (01) ==
LOC: ER 21:04
DX: R07.89 Other chest pain (principal); N39.0 Urinary tract infection, site not specified; E86.0 Dehydration; E11.65 Type 2 diabetes mellitus with hyperglycemia; Z79.84 Long term (current) use of oral hypoglycemic drugs; R05 Cough; R09.89 Other specified symptoms and signs involving the circulatory and respiratory systems; R00.0 Tachycardia, unspecified; I10 Essential (primary) hypertension; Z79.899 Other long term (current) drug therapy; Z87.891 Personal history of nicotine dependence; Z88.6 Allergy status to analgesic agent; Z88.5 Allergy status to narcotic agent; Z88.8 Allergy status to other drugs, medicaments and biological substances; Z91.018 Allergy to other foods; Z91.012 Allergy to eggs
CPT/HCPCS: 93005; 99285; 96360; 96361; 36415; 87086; 82962; 85025; 87088; 80053; 81001; 84484; 87186; 83880; 71046; 93010; A9270 ×2; J7030; J1815

== ENCOUNTER → 2019-08-16 | Outpatient (CLI) | payer MEDICARE, MEDICAID ==
[2019-08-16 15:47] VITALS: BP 148/73
--- NOTE | 2019-08-16 15:47 | ER RDC ASSESSMENT REPORT ---
Intake - In the Last 14 days Have you traveled outside [place]?: No Have you been in close contact with someone CONFIRMED: Yes Worked in Healthcare?: No - Symptoms Subjective Fever([place] feverish): No Chills: No Muscule Aches: No Runny Nose: No Sore Throat: No Cough (New or worsening chronic cough): No Shortness of breath: No Nausea or Vomiting: No Headache: No Abdominal Pain: No Diarrhea(3 or more loose stools in last 24 hours): No - Do you have any of the following Chronic lung disease: Asthma or emphysema or COPD: No Cystic Fibrosis: No Diabetes: Yes High Blood Pressure: Yes Cardiovascular Disease: Yes Chronic Kidney Disease: No Chronic Liver Disease: No Chronic blood disorder like Sickle Cell Disease: No Weak immune system due to disease or medication: No Neurologic condition that limits movement: No Developmental delay - Moderate to Severe: No Recent (within past 2 weeks) or current : No Morbid Obesity (>100 pounds over ideal weight): No - Objective Vital Signs: 5'0" 241 lb Temperature: 97.9 F Pulse Rate: 71 Respiratory Rate: 18 Blood Pressure: 148/73 O2 Sat by Pulse Oximetry: 92 Objective: Given above, testing performed: covid Disposition: Home; Selfcare General - General Chief Complaint: Other Time Seen by Provider: 08/16/19 11:59 Mode of Arrival: Ambulatory Information source: Patient - HPI Notes: Patient presents to clinic for COVID-19 testing. They have significant medical history of HTN, GERD, DM, and HLD. Patient is reporting exposure to COVID positive relative and would like to be tested. Patient is asymptomatic. They deny any cough, shortness of breath, fever, chills, muscle aches, rhinorrhea, sore throat, nausea or vomiting, headache, abdominal pain or diarrhea. Patient has no acute medical concerns - Related Data Allergies/Adverse Reactions: hydrocodone [Hydrocodone] Allergy (Severe, Verified 04/25/19 22:03) Hives naproxen sodium [From Aleve] Allergy (Severe, Verified 04/25/19 22:03) tremors pregabalin [From Lyrica] Allergy (Severe, Verified 04/25/19 22:03) Hallucinations strawberry [[place]] Allergy (Severe, Verified 04/25/19 22:03) Hives egg Allergy (Verified 04/25/19 22:03) Nausea Past Medical History - General Information source: Patient - Social History Smoking Status: Never Smoker Family History: DM, Hypertension - Past Medical History Cardiac Medical History: Reports: Hx Hypertension Denies: Hx Coronary Artery Disease, Hx Heart Attack Pulmonary Medical History: Reports: Hx Asthma - as child-not currently, Hx Bronchitis, Hx Pneumonia Denies: Hx COPD EENT Medical History: Reports: None Neurological Medical History: Reports: Hx Migraine. Denies: Hx Cerebrovascular Accident, Hx Seizures Endocrine Medical History: Reports: Hx Diabetes Mellitus Type 2 - diet control Renal/ Medical History: Reports: None. Denies: Hx Peritoneal Dialysis Malignancy Medical History: Reports: None GI Medical History: Reports: Hx Gastroesophageal Reflux Disease, Hx Hiatal Hernia, Hx Colonoscopy, Hx Endoscopy Musculoskeletal Medical History: Reports Hx Arthritis - fibromyalgia, Reports Hx Fibromyalgia Skin Medical History: Reports None Psychiatric Medical History: Reports: None Traumatic Medical History: Reports: Hx Fractures - Arm leg ankle Infectious Medical History: Reports: None Past Surgical History: Reports: Hx Hysterectomy, Hx Oral Surgery - Dental surgery, Hx Tubal Ligation Physical Exam - General General appearance: Appears well In distress: None Notes: PHYSICAL EXAMINATION: GENERAL: Well-appearing and in no acute distress. HEAD: Atraumatic, normocephalic. EYES: sclera anicteric, conjunctiva are normal. ENT: nares patent. Moist mucous membranes. NECK: Normal range of motion, supple without lymphadenopathy LUNGS: CTAB and equal. No wheezes rales or rhonchi. HEART: Regular rate and rhythm without murmurs ABDOMEN: Soft, nontender, normal bowel sounds, no guarding. EXTREMITIES: Normal range of motion, no pitting edema. No cyanosis. NEUROLOGICAL: Cranial nerves grossly intact. Normal speech. PSYCH: Normal mood, normal affect. SKIN: Warm, Dry, normal turgor, no rashes or lesions noted Patient Education/Counseling Counseling/Education: Patient presents for COVID 19 testing after exposure to relative who is confirmed positive for COVID 19. Patient remains asymptomatic at this time. Patient does not have emergency worrying symptoms such as difficulty breathing, shortness of breath, chest pain, pressure, confusion or cyanosis. Patient appears suitable for discharge as vital signs are stable and patient is nontoxic in appearance. Good return precautions have been discussed with patient, patient verbalized understanding and is agreeable with discharge plan of care at this time. Guidance for worsening S/SX: As a person under investigation for Covid 19, the [facility], division of public health advises you to adhere to the following guidance until your test results are reported to you. If your test result is positive, you will receive additional information from your provider and your local health department at that time. Remain at home until you are cleared by the health provider or public health authorities. Keep a log of visitors to your home, notify any visitors to your home of your isolation status. If you plan to move to a new address or leave the county, notify the local health department in your County. Call your doctor or seek care if you have an urgent medical need. Before seeking medical care, call ahead to get instructions from the provider before arriving at the medical office clinic or hospital. Notify them that you are being tested for the virus that causes Covid 19 so that arrangements can be made, as necessary, to prevent transmission to others in the healthcare setting. Next, notify the local health department in your county. If a medical emergency arises and you need to call 911, inform the first responders that you are being tested for the virus that causes Covid 19. Next, notify the local health department in your county. RDC Discharge - Discharge Clinical Impression: Encounter for screening laboratory testing for COVID-19 virus in asymptomatic patient Condition: Good Disposition: Home; Selfcare
== END ==
LOC: RDC 11:34
PROVIDERS: ATTEND Registered Nurse
DX: Z20.828 Contact with and (suspected) exposure to other viral communicable diseases (principal); E11.9 Type 2 diabetes mellitus without complications; I10 Essential (primary) hypertension; E78.5 Hyperlipidemia, unspecified; K21.9 Gastro-esophageal reflux disease without esophagitis; Z88.6 Allergy status to analgesic agent; Z91.012 Allergy to eggs; Z91.018 Allergy to other foods
CPT/HCPCS: U0003; C9803; 87635

== ENCOUNTER 2019-11-03 08:38 | Day surgery (SDC) | payer MEDICARE, MEDICAID ==
[~2019-11-03 08:38] MED LIST: KETOROLAC TROMETHAMINE 0.45% 4 DROP/0.4 ML DROPERETTE OS PRN
[2019-11-03] MEDS: BESIFLOXACIN HCL 0.6% OPH SUSP 5 ML BOTTLE OS PRN ×4 (09:26→10:16)
[2019-11-03] MEDS: CYCLOPENTOLATE 0.2%/PHENYLEPHRINE 1% OPH SOLN 2 ML OS PRN ×3 (09:26→09:46)
[2019-11-03] MEDS: TETRACAINE HCL 0.5% OPH SOLN 4 ML OS PRN ×3 (09:26→09:53)
[2019-11-03] MEDS: TROPICAMIDE 1% OPH SOLN 15 ML OS PRN ×3 (09:26→09:46)
[2019-11-03] MEDS ORDERED: INSULIN REG, HUMAN 100 UNIT/ML 3 ML VIAL (PYX) ONE (09:52)
[2019-11-03] MEDS ORDERED: MIDAZOLAM 2 MG/2 ML INJ ONE (09:56)
[2019-11-03] MEDS ORDERED: FENTANYL CITRATE INJ/PF 100 MCG/2 ML AMPUL ONE (09:57)
[2019-11-03] MEDS: LIDOCAINE 1%/PHENYLEPHRINE 1.5% 0.8 ML SYRINGE ONE ×2 (10:03→10:05)
[2019-11-03] MEDS: EPINEPHRINE INJ/PF 1 MG/1 ML AMPULE ONE ×2 (10:03→10:05)
[2019-11-03] MEDS: CHONDR SU A NA/HYALUR INTRAOC KIT (SURGICARE) ONE ×2 (10:03→10:05)
[2019-11-03] MEDS: DORZOLAMIDE HCL 2%/TIMOLOL MALEAT 0.5% OPH SOLN 10 ML OS PRN ×2 (10:16)
[2019-11-03] MEDS: PREDNISOLONE ACETATE 1% OPH SUSP 5 ML OS PRN ×2 (10:16)
--- NOTE | 2019-11-03 10:44 | Operative Report ---
Operative Report-[facility] Operative Report: DATE OF SURGERY: November 03, 2019 PREOPERATIVE DIAGNOSIS: NUCLEAR CATARACT, LEFT EYE. POSTOPERATIVE DIAGNOSIS: NUCLEAR CATARACT, LEFT EYE. PROCEDURE PERFORMED: PHACOEMULSIFICATION WITH POSTERIOR CHAMBER INTRAOCULAR LENS IMPLANT, LEFT EYE. SURGEON: Zeb Celaya DO MEDICATIONS AND ANESTHESIA: Versed: IV Versed Tetracaine drops: 1 to 2 drops given as needed COMPLICATION: None INDICATIONS FOR SURGERY: Medical necessity: Best corrected visual acuity worse than 20/40 secondary to cataracts with impairment of ability to carry out needs or desired activities, blurred vision, visual distortion, reduced contrast sensitivity and/or glare with association functional impairment and supporting documentation/testing, and cataracts causing symptomatic impairment of visual functions not corrected with tolerable changes in glasses or contact lenses interfering with activities of daily life. PROCEDURE: Consent: The risks, benefits and alternatives of this procedures was discussed with the patient. The patient read and signed the consent forms, was identified and was seated in the exam chair. IOL: MX 60 E 17.0 IOL Diopters: Phacoemulsification with posterior chamber intraocular lens implant: The face was prepped with 5% povidone iodine solution, and a few drops of 5% povidone iodine solution was instilled into the inferior fornix. A non-fenestrated drape was placed over the eye and the lids were parted with the speculum. A paracentesis was made with a 15 degree blade, and 1% lidocaine MPF followed by viscoelastic was injected into the anterior chamber. A 2.4 mm metal micro- keratome was used to create a temporal clear corneal incision. A circular anterior capsulorrhexis was created, followed by hydro-dissection and hydro- delineation. The phacoemulsification hand piece was inserted and the nucleus was removed with the Phaco chop technique. The irrigation-aspiration hand piece was used to remove the residual cortex, and vacuum the posterior capsule. The capsular bag was inflated and viscoelastic and the above-mentioned IOL was injected into the eye with care to insert both leaning and trailing haptics in the capsular bag. The irrigation/aspiration hand piece was reinserted to remove residual viscoelastic from the capsular bag and anterior chamber. The corneal incision was hydrated, and anterior chamber was inflated with sterile BSS via the paracentesis site, and found to be watertight. Postop medication:1 drop of prednisolone into operative by followed by 1 drop of Cosopt into operative eye followed by 1 drop of Besivance intraoperative by Other:
== END 2019-11-03 10:58 | disposition home or self-care (01) ==
LOC: SC 08:38
PROVIDERS: ATTEND Ophthalmology
DX: H25.12 Age-related nuclear cataract, left eye (principal); E11.9 Type 2 diabetes mellitus without complications; I10 Essential (primary) hypertension; M06.9 Rheumatoid arthritis, unspecified; K21.9 Gastro-esophageal reflux disease without esophagitis; Z79.4 Long term (current) use of insulin; Z79.899 Other long term (current) drug therapy
CPT/HCPCS: 66984; 82962; 00142; V2632; J2250; J3490 ×3; A9270; J0171; J3010; 142; J1815

== ENCOUNTER 2019-11-17 09:54 | Day surgery (SDC) | payer MEDICARE, MEDICAID ==
[~2019-11-17 09:54] MED LIST changes: +CHONDR SU A NA/HYALUR INTRAOC KIT (SURGICARE) ONE; +DORZOLAMIDE HCL 2%/TIMOLOL MALEAT 0.5% OPH SOLN 10 ML OD PRN; +EPINEPHRINE INJ/PF 1 MG/1 ML AMPULE ONE; +KETOROLAC TROMETHAMINE 0.45% 4 DROP/0.4 ML DROPERETTE OD PRN; -KETOROLAC TROMETHAMINE 0.45% 4 DROP/0.4 ML DROPERETTE OS PRN; +LIDOCAINE 1%/PHENYLEPHRINE 1.5% 1 ML VIAL ONE; +PREDNISOLONE ACETATE 1% OPH SUSP 5 ML OD PRN
[2019-11-17] MEDS ORDERED: ONDANSETRON HCL INJ/PF 4 MG/2 ML SDV ONE (10:07)
[2019-11-17] MEDS ORDERED: MIDAZOLAM 2 MG/2 ML INJ ONE (10:07)
[2019-11-17] MEDS ORDERED: FENTANYL CITRATE INJ/PF 100 MCG/2 ML AMPUL ONE (10:08)
[2019-11-17] MEDS: TROPICAMIDE 1% OPH SOLN 15 ML OD PRN ×3 (10:40→11:11)
[2019-11-17] MEDS: CYCLOPENTOLATE 0.2%/PHENYLEPHRINE 1% OPH SOLN 2 ML OD PRN ×3 (10:40→11:11)
[2019-11-17] MEDS: TETRACAINE HCL 0.5% OPH SOLN 4 ML OD PRN ×2 (10:40→11:11)
[2019-11-17] MEDS: BESIFLOXACIN HCL 0.6% OPH SUSP 5 ML BOTTLE OD PRN ×3 (10:41→11:30)
[2019-11-17] MEDS ORDERED: INSULIN REG, HUMAN 100 UNIT/ML 3 ML VIAL (PYX) ONE (11:00)
--- NOTE | 2019-11-17 15:27 | Operative Report ---
Operative Report-[facility] Operative Report: DATE OF SURGERY: November 17, 2019 PREOPERATIVE DIAGNOSIS: NUCLEAR CATARACT, RIGHT EYE. POSTOPERATIVE DIAGNOSIS: NUCLEAR CATARACT, RIGHT EYE. PROCEDURE PERFORMED: PHACOEMULSIFICATION WITH POSTERIOR CHAMBER INTRAOCULAR LENS IMPLANT, RIGHT EYE. SURGEON: Zeb Celaya DO MEDICATIONS AND ANESTHESIA: Versed: IV Versed Tetracaine drops: 1 to 2 drops given as needed COMPLICATION: None INDICATIONS FOR SURGERY: Medical necessity: Best corrected visual acuity worse than 20/40 secondary to cataracts with impairment of ability to carry out needs or desired activities, blurred vision, visual distortion, reduced contrast sensitivity and/or glare with association functional impairment and supporting documentation/testing, and cataracts causing symptomatic impairment of visual functions not corrected with tolerable changes in glasses or contact lenses interfering with activities of daily life. PROCEDURE: Consent: The risks, benefits and alternatives of this procedures was discussed with the patient. The patient read and signed the consent forms, was identified and was seated in the exam chair. IOL: MX 60 E 14.0 IOL Diopters: Phacoemulsification with posterior chamber intraocular lens implant: The face was prepped with 5% povidone iodine solution, and a few drops of 5% povidone iodine solution was instilled into the inferior fornix. A non-fenestrated drape was placed over the eye and the lids were parted with the speculum. A paracentesis was made with a 15 degree blade, and 1% lidocaine MPF followed by viscoelastic was injected into the anterior chamber. A 2.4 mm metal micro- keratome was used to create a temporal clear corneal incision. A circular anterior capsulorrhexis was created, followed by hydro-dissection and hydro- delineation. The phacoemulsification hand piece was inserted and the nucleus was removed with the Phaco chop technique. The irrigation-aspiration hand piece was used to remove the residual cortex, and vacuum the posterior capsule. The capsular bag was inflated and viscoelastic and the above-mentioned IOL was injected into the eye with care to insert both leaning and trailing haptics in the capsular bag. The irrigation/aspiration hand piece was reinserted to remove residual viscoelastic from the capsular bag and anterior chamber. The corneal incision was hydrated, and anterior chamber was inflated with sterile BSS via the paracentesis site, and found to be watertight. Postop medication: 1 drop of prednisolone into operative by followed by 1 drop of Cosopt into operative eye followed by 1 drop of Besivance intraoperative by other:
== END 2019-11-17 12:10 | disposition home or self-care (01) ==
LOC: SC 09:54
PROVIDERS: ATTEND Ophthalmology
DX: H25.11 Age-related nuclear cataract, right eye (principal); E11.36 Type 2 diabetes mellitus with diabetic cataract; Z98.42 Cataract extraction status, left eye; I10 Essential (primary) hypertension; Z79.84 Long term (current) use of oral hypoglycemic drugs; M06.9 Rheumatoid arthritis, unspecified; K21.9 Gastro-esophageal reflux disease without esophagitis
CPT/HCPCS: 66984; 82962; V2632; J2250; J3490 ×2; A9270; J0171; J3010; J2405; 142; J1815